=== PATIENT | male | born 1985 | race Caucasian/White ===

== ENCOUNTER → 2017-12-31 11:29 | Outpatient (REF) | payer BC, SELFPAY ==
[2017-12-31 15:39] LABS: Basophils # 0.1 K/mm3 (0-0.2); Basophils % 0.9 % (0.1-2.0); Eosinophils # 0.2 K/mm3 (0.0-0.4); Eosinophils % 2.1 % (0.1-12.0); Hematocrit 48.2 % (42.0-52.0); Hemoglobin 16.7 g/dL (14.1-18.0); Lymphocytes # 2.4 K/mm3 (0.7-4.5); Lymphocytes % 31.6 K/mm3 (10-50); Mean Corpuscular HGB Conc 34.8 g/dL (31.8-35.4); Mean Corpuscular Hemoglobin 28.9 pg (27.0-31.2); Mean Corpuscular Volume 83.3 fl (80-94); Mean Platelet Volume 9.1 fl (7.4-10.4); Monocytes # 0.5 K/mm3 (0.1-1.0); Monocytes % 6.4 % (1.7-9.3); Neutrophils # 4.5 K/mm3 (1.8-7.8); Platelet Count 213 K/mm3 (142-424); Red Blood Count 5.78 M/mm3 (4.60-6.20); Red Cell Distribution Width 12.5 % (11.5-17.5); White Blood Count 7.5 K/mm3 (4.8-10.8)
[2017-12-31 16:09] LABS: Alanine Aminotransferase 35 U/L (12-78); Albumin Level 4.4 gm/dL (3.4-5.0); Albumin/Globulin Ratio 1.4 (1.1-1.8); Alkaline Phosphatase 65 U/L (46-116); Anion Gap 17.3 mEq/L (5-15); Aspartate Amino Transferase 21 U/L (15-37); Bilirubin,Total 1.3 mg/dL (0.2-1.0); Blood Urea Nitrogen 17 mg/dL (7-18); Calcium 8.9 mg/dL (8.5-10.1); Carbon Dioxide 27 mmol/L (21.0-32.0); Chloride 99 mmol/L (98-107); Chol/HDL Ratio 4.4 (1-3.5); Cholesterol 209 mg/dL (140-200); Creatinine,Serum 0.95 mg/dL (0.70-1.30); Estimated Glomerular Filt Rate 92 ml/min (>60); Free T4 (Free Thyroxine) 0.99 ng/dl (0.76-1.46); GFR (African American) 112 ML/MIN (>60); Globulin 3.2 gm/dl (1.3-3.2); Glucose 284 mg/dL (74-106); HDL Cholesterol 48 mg/dL (27-67); LDL Cholesterol 93 mg/dL (0-130); Potassium 4.3 mmoL/L (3.5-5.1); Sodium 139 mmol/L (136-145); Thyroid Stimulating Hormone 5.66 uIU/ml (0.358-3.740); Total Protein,Serum 7.6 gm/dL (6.4-8.2); Triglycerides 339 mg/dL (30-200); VLDL Cholesterol 68 mg/dL (0-40)
[2017-12-31 16:22] LABS: Erythrocyte Sedimentation Rate 4 mm/hr (0-15)
[2017-12-31 17:05] LABS: Hemoglobin A1C 9.5 % (0.0-7.0)
== END ==
LOC: LAB 11:29
PROVIDERS: Visit Provider Nurse Practitioner Family
DX: R53.83 Other fatigue (principal); K92.1 Melena; R19.5 Other fecal abnormalities
CPT/HCPCS: 80053; 80061; 82652; 83036; 84439; 84443; 85025; 85651; 86141

== ENCOUNTER → 2018-01-01 03:00 | Outpatient (CLI) | payer OTHER, SELFPAY ==
[2018-01-02 16:15] LABS: Occult Blood,Stool Negative (Negative)
== END ==
PROVIDERS: PCP Emergency Medicine; Visit Provider Emergency Medicine
DX: R53.83 Other fatigue (principal); R19.5 Other fecal abnormalities; E55.9 Vitamin D deficiency, unspecified
CPT/HCPCS: 82272; G0328

== ENCOUNTER → 2018-01-02 14:44 | Outpatient (CLI) | payer OTHER, SELFPAY ==
[2018-01-02 16:01] LABS: Occult Blood,Stool Negative (Negative)
[2018-01-02 16:15] LABS: Occult Blood,Stool Negative (Negative)
== END ==
PROVIDERS: PCP Emergency Medicine; Visit Provider Nurse Practitioner Family
DX: R53.83 Other fatigue (principal)
CPT/HCPCS: 82272; G0328

== ENCOUNTER → 2018-01-23 09:40 | Outpatient (CLI) | payer OTHER, SELFPAY | PROVIDERS: PCP Emergency Medicine; Visit Provider Nurse Practitioner Family | DX: E11.9 Type 2 diabetes mellitus without complications (principal); Z71.3 Dietary counseling and surveillance | CPT/HCPCS: 97802; G0108 ==

== ENCOUNTER → 2018-04-08 10:01 | Outpatient (REF) | payer OTHER, SELFPAY ==
[2018-04-08 13:47] LABS: Thyroid Stimulating Hormone 3.86 uIU/ml (0.358-3.740)
== END ==
LOC: LAB 10:01
PROVIDERS: Visit Provider Nurse Practitioner Family
DX: R53.83 Other fatigue (principal); E11.9 Type 2 diabetes mellitus without complications
CPT/HCPCS: 83036; 84443

== ENCOUNTER → 2018-05-21 13:51 | Outpatient (CLI) | payer OTHER, SELFPAY ==
[2018-05-21 16:39] LABS: Semen Viscosity Normal (Normal); Sperm Count 107 mil/mm3 (20-160); Sperm Motility 75 % (50-90); Volume,Semen 3.5 ml (2.0-5.0)
[2018-05-21 16:56] LABS: Sperm Morphology Normal (Normal)
[2018-05-21 17:09] LABS: 3Hr Motility Quality Good Progression (Mod-Rapid); 3Hr Sperm Motility 75 % (50-60); Motility Quality Rapid Progression (Mod-Rapid)
== END ==
PROVIDERS: Visit Provider Obstetrics & Gynecology
DX: Z31.41 Encounter for fertility testing (principal)
CPT/HCPCS: 89320

== ENCOUNTER → 2018-07-07 09:52 | Outpatient (CLI) | payer OTHER, SELFPAY ==
[2018-07-07 13:44] LABS: Basophils % 0.5 % (0.1-2.0); Eosinophils # 0.1 K/mm3 (0.0-0.4); Eosinophils % 2.2 % (0.1-12.0); Hematocrit 46.3 % (42.0-52.0); Hemoglobin 15.4 g/dL (14.1-18.0); Lymphocytes # 2.4 K/mm3 (0.7-4.5); Lymphocytes % 37.7 K/mm3 (10-50); Mean Corpuscular HGB Conc 33.2 g/dL (31.8-35.4); Mean Corpuscular Hemoglobin 29.7 pg (27.0-31.2); Mean Corpuscular Volume 89.4 fl (80-94); Mean Platelet Volume 8.6 fl (7.4-10.4); Monocytes # 0.3 K/mm3 (0.1-1.0); Monocytes % 5.5 % (1.7-9.3); Neutrophils # 3.4 K/mm3 (1.8-7.8); Neutrophils % 54.1 % (37.0-80.0); Platelet Count 224 K/mm3 (142-424); Red Blood Count 5.18 M/mm3 (4.60-6.20); Red Cell Distribution Width 13.3 % (11.5-17.5); White Blood Count 6.3 K/mm3 (4.8-10.8)
[2018-07-07 13:56] LABS: Hemoglobin A1C 5.9 % (0.0-7.0)
[2018-07-07 13:57] LABS: Alanine Aminotransferase 25 U/L (12-78); Albumin Level 4.3 gm/dL (3.4-5.0); Albumin/Globulin Ratio 1.4 (1.1-1.8); Alkaline Phosphatase 51 U/L (46-116); Anion Gap 13.6 mEq/L (5-15); Aspartate Amino Transferase 12 U/L (15-37); Bilirubin,Total 1.4 mg/dL (0.2-1.0); Blood Urea Nitrogen 17 mg/dL (7-18); Calcium 9.1 mg/dL (8.5-10.1); Carbon Dioxide 29 mmol/L (21.0-32.0); Chloride 101 mmol/L (98-107); Chol/HDL Ratio 2.5 (1-3.5); Cholesterol 147 mg/dL (140-200); Creatinine,Serum 1.06 mg/dL (0.70-1.30); Estimated Glomerular Filt Rate 81 ml/min (>60); GFR (African American) 99 ML/MIN (>60); Glucose 121 mg/dL (74-106); HDL Cholesterol 59 mg/dL (27-67); LDL Cholesterol 65 mg/dL (0-130); Potassium 4.6 mmoL/L (3.5-5.1); Sodium 139 mmol/L (136-145); Total Protein,Serum 7.3 gm/dL (6.4-8.2); Triglycerides 114 mg/dL (30-200); VLDL Cholesterol 23 mg/dL (0-40)
[2018-07-08 11:37] LABS: Creatinine, Urine 110.7 mg/dL (Not Estab.); Microalbumin, Urine 5.9 ug/mL (Not Estab.)
[2018-07-08 16:06] LABS: Vitamin D 25 Hydroxy 47.1 ng/mL (30.0-100.0)
== END ==
PROVIDERS: Visit Provider Nurse Practitioner Family
DX: E11.9 Type 2 diabetes mellitus without complications (principal); R53.83 Other fatigue
CPT/HCPCS: 80053; 80061; 82043; 82570; 82652; 83036; 84443; 85025

== ENCOUNTER → 2018-10-06 13:09 | Outpatient (CLI) | payer OTHER, SELFPAY ==
[2018-10-06 13:33] LABS: Hemoglobin A1C 5.5 % (0.0-7.0)
[2018-10-06 13:38] LABS: Basophils % 0.6 % (0.1-2.0); Eosinophils # 0.2 K/mm3 (0.0-0.4); Hematocrit 48.1 % (42.0-52.0); Hemoglobin 16.1 g/dL (14.1-18.0); Lymphocytes # 2.3 K/mm3 (0.7-4.5); Lymphocytes % 38.2 % (10-50); Mean Corpuscular HGB Conc 33.5 g/dL (31.8-35.4); Mean Corpuscular Hemoglobin 30.7 pg (27.0-31.2); Mean Corpuscular Volume 91.7 fl (80-94); Mean Platelet Volume 8.3 fl (7.4-10.4); Monocytes # 0.3 K/mm3 (0.1-1.0); Neutrophils # 3.1 K/mm3 (1.8-7.8); Neutrophils % 52.3 % (37.0-80.0); Platelet Count 224 K/mm3 (142-424); Red Blood Count 5.25 M/mm3 (4.60-6.20); Red Cell Distribution Width 13.7 % (11.5-17.5)
[2018-10-06 13:53] LABS: Alanine Aminotransferase 28 U/L (12-78); Albumin Level 4.5 gm/dL (3.4-5.0); Albumin/Globulin Ratio 1.4 (1.1-1.8); Alkaline Phosphatase 51 U/L (46-116); Anion Gap 18.4 mEq/L (5-15); Aspartate Amino Transferase 19 U/L (15-37); Bilirubin,Total 1.1 mg/dL (0.2-1.0); Blood Urea Nitrogen 16 mg/dL (7-18); Calcium 9.5 mg/dL (8.5-10.1); Carbon Dioxide 26 mmol/L (21.0-32.0); Chloride 99 mmol/L (98-107); Chol/HDL Ratio 3.1 (1-3.5); Cholesterol 242 mg/dL (140-200); Creatinine,Serum 0.98 mg/dL (0.70-1.30); Estimated Glomerular Filt Rate 89 ml/min (>60); GFR (African American) 108 ML/MIN (>60); Globulin 3.3 gm/dl (1.3-3.2); Glucose 112 mg/dL (74-106); HDL Cholesterol 78 mg/dL (27-67); LDL Cholesterol 146 mg/dL (0-130); Potassium 4.4 mmoL/L (3.5-5.1); Sodium 139 mmol/L (136-145); T4 (Thyroxine) 7.5 ug/dl (4.7-13.3); Thyroid Stimulating Hormone 4.04 uIU/ml (0.358-3.740); Total Protein,Serum 7.8 gm/dL (6.4-8.2); Triglycerides 90 mg/dL (30-200); VLDL Cholesterol 18 mg/dL (0-40)
[2018-10-13 11:12] LABS: Testosterone, Total, LC/MS 454.2 ng/dL (264.0-916.0); Testosterone,Free 11.9 pg/mL (8.7-25.1)
== END ==
PROVIDERS: PCP Nurse Practitioner Family; Visit Provider Nurse Practitioner Family
DX: E11.9 Type 2 diabetes mellitus without complications (principal); R53.83 Other fatigue
CPT/HCPCS: 80053; 80061; 82652; 83036; 84402; 84403; 84436; 84443; 85025

== ENCOUNTER → 2019-04-09 14:17 | Outpatient (CLI) | payer OTHER, SELFPAY ==
[2019-04-09 14:35] LABS: Basophils % 0.5 % (0.1-2.0); Eosinophils # 0.1 K/mm3 (0.0-0.4); Eosinophils % 1.7 % (0.1-12.0); Hematocrit 40.6 % (42.0-52.0); Hemoglobin 14.6 g/dL (14.1-18.0); Lymphocytes # 1.5 K/mm3 (0.7-4.5); Lymphocytes % 36.9 % (10-50); Mean Corpuscular Hemoglobin 30.9 pg (27.0-31.2); Mean Corpuscular Volume 85.7 fl (80-94); Mean Platelet Volume 8.6 fl (7.4-10.4); Monocytes # 0.4 K/mm3 (0.1-1.0); Monocytes % 9.9 % (1.7-9.3); Platelet Count 221 K/mm3 (142-424); Red Blood Count 4.73 M/mm3 (4.60-6.20); Red Cell Distribution Width 11.4 % (11.5-17.5)
[2019-04-09 16:35] LABS: Alanine Aminotransferase 27 U/L (12-78); Albumin Level 3.7 gm/dL (3.4-5.0); Albumin/Globulin Ratio 1.3 (1.1-1.8); Alkaline Phosphatase 52 U/L (46-116); Anion Gap 15.4 mEq/L (5-15); Aspartate Amino Transferase 14 U/L (15-37); Blood Urea Nitrogen 20 mg/dL (7-18); Calcium 8.7 mg/dL (8.5-10.1); Carbon Dioxide 25 mmol/L (21.0-32.0); Chloride 105 mmol/L (98-107); Chol/HDL Ratio 2.7 (1-3.5); Cholesterol 109 mg/dL (140-200); Creatinine,Serum 0.75 mg/dL (0.70-1.30); Estimated Glomerular Filt Rate 121 ml/min (>60); GFR (African American) 146 ML/MIN (>60); Globulin 2.9 gm/dl (1.3-3.2); Glucose 138 mg/dL (74-106); HDL Cholesterol 40 mg/dL (27-67); LDL Cholesterol 50 mg/dL (0-130); Potassium 4.4 mmoL/L (3.5-5.1); Sodium 141 mmol/L (136-145); T4 (Thyroxine) 11.6 ug/dl (4.7-13.3); Thyroid Stimulating Hormone 0.02 uIU/ml (0.358-3.740); Total Protein,Serum 6.6 gm/dL (6.4-8.2); Triglycerides 96 mg/dL (30-200); VLDL Cholesterol 19 mg/dL (0-40)
[2019-04-09 18:06] LABS: Hemoglobin A1C 5.4 % (0.0-7.0)
[2019-04-11 18:07] LABS: Vitamin D 25 Hydroxy 41.6 ng/mL (30.0-100.0)
[2019-04-14 08:50] LABS: Testosterone, Total, LC/MS 1044.6 ng/dL (264.0-916.0); Testosterone,Free 9.9 pg/mL (8.7-25.1)
== END ==
PROVIDERS: Visit Provider Nurse Practitioner Family
DX: E11.9 Type 2 diabetes mellitus without complications (principal); R00.2 Palpitations; R53.83 Other fatigue
CPT/HCPCS: 80053; 80061; 82652; 83036; 84402; 84403; 84436; 84443; 85025

== ENCOUNTER → 2019-10-20 13:33 | Outpatient (CLI) | payer OTHER, SELFPAY ==
[2019-10-20 14:10] LABS: Basophils % 0.4 % (0.1-2.0); Eosinophils # 0.2 K/mm3 (0.0-0.4); Eosinophils % 4.6 % (0.1-12.0); Hematocrit 47.9 % (42.0-52.0); Hemoglobin 16.2 g/dL (14.1-18.0); Lymphocytes # 1.4 K/mm3 (0.7-4.5); Lymphocytes % 32.1 % (10-50); Mean Corpuscular HGB Conc 33.9 g/dL (31.8-35.4); Mean Corpuscular Hemoglobin 28.8 pg (27.0-31.2); Mean Corpuscular Volume 84.9 fl (80-94); Mean Platelet Volume 8.8 fl (7.4-10.4); Monocytes # 0.4 K/mm3 (0.1-1.0); Neutrophils # 2.4 K/mm3 (1.8-7.8); Neutrophils % 53.8 % (37.0-80.0); Platelet Count 254 K/mm3 (142-424); Red Blood Count 5.64 M/mm3 (4.60-6.20); Red Cell Distribution Width 12.6 % (11.5-17.5); White Blood Count 4.4 K/mm3 (4.8-10.8)
[2019-10-20 15:30] LABS: Alanine Aminotransferase 24 U/L (12-78); Albumin Level 3.9 gm/dL (3.4-5.0); Albumin/Globulin Ratio 1.3 (1.1-1.8); Alkaline Phosphatase 115 U/L (46-116); Bilirubin,Total 3.3 mg/dL (0.2-1.0); Blood Urea Nitrogen 17 mg/dL (7-18); Calcium 9.2 mg/dL (8.5-10.1); Carbon Dioxide 25 mmol/L (21.0-32.0); Chloride 99 mmol/L (98-107); Chol/HDL Ratio 2.2 (1-3.5); Cholesterol 129 mg/dL (140-200); Estimated Glomerular Filt Rate 156 ml/min (>60); GFR (African American) 189 ML/MIN (>60); Globulin 2.9 gm/dl (1.3-3.2); Glucose 194 mg/dL (74-106); HDL Cholesterol 58 mg/dL (27-67); LDL Cholesterol 51 mg/dL (0-130); T4 (Thyroxine) 1.3 ug/dl (4.7-13.3); Total Protein,Serum 6.8 gm/dL (6.4-8.2); Triglycerides 98 mg/dL (30-200); VLDL Cholesterol 20 mg/dL (0-40)
[2019-10-20 16:30] LABS: Anion Gap 15.1 mEq/L (5-15); Aspartate Amino Transferase 26 U/L (15-37); Potassium 4.1 mmoL/L (3.5-5.1); Sodium 135 mmol/L (136-145)
[2019-10-20 19:51] LABS: Hemoglobin A1C 7.6 % (0.0-7.0)
[2019-10-21 11:47] LABS: Vitamin D 25 Hydroxy 39.5 ng/mL (30.0-100.0)
== END ==
PROVIDERS: Visit Provider Physician Assistant
DX: R53.83 Other fatigue (principal); E11.9 Type 2 diabetes mellitus without complications; Z79.84 Long term (current) use of oral hypoglycemic drugs
CPT/HCPCS: 80053; 80061; 82652; 83036; 84436; 84443; 85025

== ENCOUNTER → 2020-07-18 17:26 | Outpatient (CLI) | payer OTHER, SELFPAY ==
[2020-07-18 17:47] LABS: Basophils # 0.1 K/mm3 (0-0.2); Eosinophils # 0.2 K/mm3 (0.0-0.4); Eosinophils % 3.6 % (0.1-12.0); Hemoglobin 17.9 g/dL (14.1-18.0); Lymphocytes # 2.2 K/mm3 (0.7-4.5); Lymphocytes % 34.2 % (10-50); Mean Corpuscular HGB Conc 35.8 g/dL (31.8-35.4); Mean Corpuscular Hemoglobin 30.9 pg (27.0-31.2); Mean Corpuscular Volume 86.2 fl (80-94); Mean Platelet Volume 8.2 fl (7.4-10.4); Monocytes # 0.4 K/mm3 (0.1-1.0); Neutrophils # 3.5 K/mm3 (1.8-7.8); Neutrophils % 55.3 % (37.0-80.0); Platelet Count 215 K/mm3 (142-424); Red Cell Distribution Width 12.5 % (11.5-17.5); White Blood Count 6.4 K/mm3 (4.8-10.8)
[2020-07-18 18:05] LABS: Creatinine,Urine Random 285 mg/dL (Not Estab.)
[2020-07-18 18:06] LABS: Microalbumin/Creatinine Ratio 36.8
[2020-07-18 19:01] LABS: Alanine Aminotransferase 22 U/L (12-78); Albumin Level 5.2 g/dl (3.5-5.0); Albumin/Globulin Ratio 1.7 (1.1-1.8); Alkaline Phosphatase 103 U/L (38-126); Anion Gap 17.6 mEq/L (5-15); Aspartate Amino Transferase 23 U/L (17-59); Bilirubin,Total 1.4 mg/dl (0.2-1.3); Blood Urea Nitrogen 15 mg/dl (9-20); Calcium 9.9 mg/dl (8.4-10.2); Carbon Dioxide 26 mmol/L (22.0-30.0); Chloride 99 mmol/L (98-107); Estimated Glomerular Filt Rate 155 ml/min (>60); GFR (African American) 188 ML/MIN (>60); Glucose 266 mg/dl (74-100); Potassium 4.6 mmoL/L (3.5-5.1); Sodium 138 mmol/L (136-145); Total Protein,Serum 8.2 g/dl (6.3-8.2)
[2020-07-18 19:20] LABS: T4 (Thyroxine) 9.9 ug/dl (5.53-11.0)
[2020-07-18 19:33] LABS: Thyroid Stimulating Hormone < 0.02 uIU/mL (0.465-4.68)
[2020-07-18 19:41] LABS: Hemoglobin A1C 8.9 % (4.0-6.0)
== END ==
PROVIDERS: Visit Provider Family Medicine
DX: E11.9 Type 2 diabetes mellitus without complications (principal); Z79.4 Long term (current) use of insulin
CPT/HCPCS: 80053; 82043; 82570; 83036; 84436; 84443; 85025

== ENCOUNTER → 2020-09-22 17:36 | Outpatient (CLI) | payer OTHER, SELFPAY ==
[2020-09-22 18:04] LABS: Hemoglobin A1C 8.1 % (4.0-6.0)
[2020-09-22 18:14] LABS: Triiodothryronine (T3) Uptake 38 % (23.5-40.5)
[2020-09-22 18:15] LABS: Free Thyroxine Index 2.9 ug/dL (5.93-13.13); T4 (Thyroxine) 7.7 ug/dl (5.53-11.0)
[2020-09-22 18:29] LABS: Thyroid Stimulating Hormone < 0.02 uIU/mL (0.465-4.68)
[2020-09-24 17:48] LABS: Thyroid Peroxidase Antibodies 199 IU/mL (0-34)
[2020-09-26 07:30] LABS: Thyroid Stimulating Immunoglob 4.32 IU/L (0.00-0.55)
== END ==
PROVIDERS: Visit Provider Family Medicine
DX: E03.9 Hypothyroidism, unspecified (principal); E11.9 Type 2 diabetes mellitus without complications; R53.83 Other fatigue; Z79.84 Long term (current) use of oral hypoglycemic drugs
CPT/HCPCS: 83036; 84436; 84443; 84445; 84479; 86376

== ENCOUNTER → 2020-10-03 13:15 | Outpatient (CLI) | payer BC, SELFPAY ==
--- NOTE | 2020-10-03 13:16 | US_ITS ---
PROCEDURE: US THYROID CLINICAL INDICATION: enlarged thyroid COMPARISON: No exams were available for comparison FINDINGS: Right lobe: 1.8cm x 4.3cm x 1.5cm Left lobe: 1.5cm x 4.3cm x 1.8cm Isthmus: Mildly thickened at 4 mm. Additional findings: There is a vague 8 mm isoechoic nodule in the upper pole on the right. There is heterogeneous echogenicity bilaterally. IMPRESSION: Mildly enlarged thyroid gland with heterogeneous echogenicity with a vague nodule on the right. Consider six-month follow-up. Dictated by: Salazar Garcia MD 10/04/2020 14:59 Salazar Garcia MD in [place] 10/04/2020 14:59
== END ==
PROVIDERS: PCP Family Medicine; Visit Provider Family Medicine
DX: E01.0 Iodine-deficiency related diffuse (endemic) goiter (principal); E03.9 Hypothyroidism, unspecified
CPT/HCPCS: 76536

== ENCOUNTER 2020-10-23 02:02 | Emergency (ER) | payer BC, SELFPAY ==
[2020-10-23 02:09] VITALS: BP 139/70; PULSE 96; RESP 18; TEMP 36.9; O2SAT 96; BMI 24.7
--- NOTE | 2020-10-23 02:20 | XR_ITS ---
PROCEDURE: XR HAND RT MIN 3V Referring Doctor: Chao Jolly Patient Age:34Y CLINICAL INDICATION: Hand injury PAIN ULNAR ASPECT HAND. SWELLING BRUISING. FELL DOWN STAIRS HIT FLOOR COMPARISON: No exams were available for comparison FINDINGS: right hand 3 view ap lateral and oblique performed today mildly comminuted fracture at neck of 5th metacarpal. no significant displacement but there is slight angulation with anterior tilt of distal fracture fragment/head of 5th metacarpal. there is also fracture transversing the neck of the 4th metacarpal but nondisplaced with also slight angulation with anterior tilt of head of 4th metacarpal seen on lateral view. soft tissue swelling at the hand-most evident dorsally and along the ulnar aspect of the hand overlying the region of fractures The fingers appear intact. 1st 2nd and 3rd metacarpals intact. carpals intact. borderline narrowing and possible scant early degenerative changes at ip joint of thumb a may reflect scant degenerative changes here. IMPRESSION: ACUTE FRACTURE NECK 5TH AND 4TH METACARPALS Dictated by: Eric Cheema MD 10/23/2020 11:40 Eric Cheema MD in [place] 10/23/2020 11:40
--- NOTE | 2020-10-23 02:46 | HMH.EDGENADL ---
ED Disposition Clinical Impression: Boxers fracture Qualifiers: Encounter type: initial encounter Fracture type: closed Qualified Code(s): S62.339A - Displaced fracture of neck of unspecified metacarpal bone, initial encounter for closed fracture Disposition: Home, Self-Care Condition on Discharge: Good Instructions: DI for a Hand Fracture Additional Instructions: You were seen on an emergency basis. It is very important that you follow up with your primary care provider and/or specialist as we discussed within 2 days. All labs and imaging were obtained and interpreted here to rule out life threatening emergencies, but your final results should be reviewed by your primary doctor at your follow up appointment. Please return to the emergency department if any of your symptoms worsen, or if they do not improve as we discussed. Prescriptions: Naproxen Sodium [Anaprox Ds] 550 mg PO BID #20 tab Transmission Status: Pending to [facility] Referrals: Garrett Lazo MD [Primary Care Provider] - Kailyn Espino MD [Physician] - - Critical Care Critical Care Time: No Attestation: On 10/23/20, the high probability of a clinically significant, sudden or life threatening deterioration of the following system(s) required my full and direct attention, intervention and personal management. The time I documented below is in addition to time spent performing reported procedures but includes the following listed in this critical care notation. Medical Decision Making - Medical Records Medical records reviewed: Yes: I reviewed the patient's medical records. - Sy Inquiry Pt receiving controlled substance: No Vital Signs: 10/23/20 02:09 Temperature 98.4 F Temperature Source Oral Pulse Rate [Left] 96 H Respiratory Rate 18 Blood Pressure [Left Arm] 139/70 Blood Pressure Mean [Left Arm] 93 Blood Pressure Source [Left Arm] Automatic Cuff Blood Pressure Position [Left Arm] Sitting 02 Sat by Pulse Oximetry 96 Oxygen Delivery Method Room Air - Lab Data Lab results reviewed: Yes: I reviewed the patient's lab results. Orders (Tests/Meds): ORDERS Category Date Time Status XR hand RT min 3V Stat Exams 10/23/20 02:20 Taken Medical Decision Narrative: 34-year-old male presenting with hand pain after mechanical fall. Clinically sober here. X-ray of the right hand was obtained and demonstrated a boxer's fracture. He was placed in a ulnar gutter splint for this. He received [place] here. Tendon function intact. Neurovascularly intact. Closed injury. Will follow up with Ortho. No other injuries. General Adult HPI - General Chief complaint: Extremity Injury, Upper Stated complaint: thinks he broke his right hand Time Seen by Provider: 10/23/20 02:46 Mode of Arrival: Ambulatory Limitations: No Limitations Description of Symptoms (Recalled from ER Triage Doc. by RN): Pt fell hitting right hand on floor and is swelling and paoinfull - History of Present Illness HPI narrative: This is a 34-year-old [id number] male presenting just after a ground-level mechanical fall onto his right hand. He presents with pain localized to the ulnar aspect of his right hand. Patient states that he was drinking when he fell. No head strike, loss of consciousness or other injury. He took ibuprofen at home which helped minimally. - Related Data Home Medications Medication Instructions Recorded Confirmed Empagliflozin [Jardiance] 25 mg PO DAILY 10/23/20 10/23/20 Glimepiride 2 mg PO DAILY 10/23/20 10/23/20 Metformin HCl [Glucophage] 1,000 mg PO BID 10/23/20 10/23/20 lisinopriL [Lisinopril 2.5mg Tab] 2.5 mg PO DAILY 10/23/20 10/23/20 Previous Rx's Medication Instructions Recorded sildenafil 100 mg tablet 100 mg PO DAILY PRN #10 tab 07/18/20 Naproxen Sodium [Anaprox Ds] 550 mg PO BID #20 tab 10/23/20 Allergies Allergy/AdvReac Type Severity Reaction Status Date / Time No Known Allergies Allergy
--- NOTE | 2020-10-23 02:56 | PC.NURSE ---
Ulnar gutter placed on right hand pt tolerated well, educated on monitoring cap refil
[2020-10-23 03:07] VITALS: BP 136/74; PULSE 92; RESP 16; TEMP 36.9; O2SAT 98
== END 2020-10-23 03:11 | disposition home or self-care (01) ==
PROVIDERS: Emergency Provider Physician Assistant; PCP Family Medicine
DX: S62.366A Nondisplaced fracture of neck of fifth metacarpal bone, right hand, initial encounter for closed fracture (principal); S62.364A Nondisplaced fracture of neck of fourth metacarpal bone, right hand, initial encounter for closed fracture; W01.0XXA Fall on same level from slipping, tripping and stumbling without subsequent striking against object, initial encounter; Y92.019 Unspecified place in single-family (private) house as the place of occurrence of the external cause; I10 Essential (primary) hypertension; E03.9 Hypothyroidism, unspecified; E11.9 Type 2 diabetes mellitus without complications; F17.210 Nicotine dependence, cigarettes, uncomplicated; Z79.899 Other long term (current) drug therapy
CPT/HCPCS: 29125; 73130; 99284

== ENCOUNTER → 2020-10-31 12:35 | Outpatient (CLI) | payer BC, SELFPAY ==
--- NOTE | 2020-10-31 12:39 | XR_ITS ---
PROCEDURE: XR HAND RT MIN 3V CLINICAL INDICATION: R ring, small finger metacarpal neck fractures COMPARISON: CR XR HAND RT MIN 3V from 10/23/2020 FINDINGS: There is a medial splint in place. Fractures once again noted involving the distal aspect of the 4th and 5th metacarpals with minimal palmar and radial angulation of the distal fracture fragments without significant displacement with no significant change. IMPRESSION: Status post splinting of 4th and 5th metacarpal fractures Dictated by: Salazar Garcia MD 10/31/2020 14:31 Salazar Garcia MD in [place] 10/31/2020 14:31
== END ==
PROVIDERS: PCP Family Medicine; Visit Provider Orthopaedic Surgery
DX: S62.339A Displaced fracture of neck of unspecified metacarpal bone, initial encounter for closed fracture (principal)
CPT/HCPCS: 73130

== ENCOUNTER → 2020-11-24 09:12 | Outpatient (CLI) | payer BC, SELFPAY ==
--- NOTE | 2020-11-24 09:15 | XR_ITS ---
PROCEDURE: XR HAND RT MIN 3V Referring Doctor: Kailyn Espino Patient Age:35Y CLINICAL INDICATION: RT hand: 4th 5th MC neck fxs. Follow-up COMPARISON: CR XR HAND RT MIN 3V from 10/23/2020 DX XR HAND RT MIN 3V from 10/31/2020 TECHNIQUE: 3 View AP, Oblique, Lateral FINDINGS: Right hand AP lateral and oblique views performed and compared to October 31. Splint is been removed for today's study. Fractures at the neck of the 5th and 4th metacarpal. If anything there angulationfracture is slightly more evident on today's studies than previous. The fracture zone is slightly more evident of particularly dorsally this may in part reflect resorption but is difficult to exclude some slight additional distraction. In either case there is early healing and bone formation at the anterior aspect of the fracture zone.. The anterior tilt of the head of the 4th or 5th metacarpal are most evident. . Swelling persists overlying these fractures and the ulnar aspect of the hand The 1st 2nd and 3rd metacarpals are intact IMPRESSION: Fractures neck of 4th and 5th metacarpal; with early healing evident However if anything the anterior tilt and angulation of at head of 4th and 5th metacarpal appears slightly more evident on today's radiograph but correlation required Dictated by: Eric Cheema MD 11/24/2020 10:18 Eric Cheema MD in [place] 11/24/2020 10:18
== END ==
PROVIDERS: PCP Family Medicine; Visit Provider Orthopaedic Surgery
DX: S62.339A Displaced fracture of neck of unspecified metacarpal bone, initial encounter for closed fracture (principal)
CPT/HCPCS: 73130

== ENCOUNTER → 2020-12-16 08:42 | Outpatient (CLI) | payer BC, SELFPAY ==
--- NOTE | 2020-12-16 08:56 | XR_ITS ---
PROCEDURE: XR HAND RT MIN 3V CLINICAL INDICATION: RT 4th 5th MC neck FX's Follow-up fracture COMPARISON: CR XR HAND RT MIN 3V from 10/23/2020 DX XR HAND RT MIN 3V from 10/31/2020 CR XR HAND RT MIN 3V from 11/24/2020 FINDINGS: Comminuted minimally displaced fractures involve the distal aspect of the 4th and 5th metacarpals. Callus formation is present indicating early healing. There is moderate lateral and anterior angulation of the distal fracture fragments. The joint spaces are well-preserved. No significant degenerative/arthritic changes. No erosive changes evident. Other findings:None. IMPRESSION: Healing 4th and 5th metacarpal fractures Dictated by: Salazar Garcia MD 12/16/2020 11:43 Salazar Garcia MD in [place] 12/16/2020 11:43
== END ==
PROVIDERS: PCP Family Medicine; Visit Provider Orthopaedic Surgery
DX: S62.339A Displaced fracture of neck of unspecified metacarpal bone, initial encounter for closed fracture (principal)
CPT/HCPCS: 73130

== ENCOUNTER → 2021-01-13 10:00 | Outpatient (CLI) | payer BC, SELFPAY ==
--- NOTE | 2021-01-13 10:03 | XR_ITS ---
PROCEDURE: XR HAND RT MIN 3V CLINICAL INDICATION: R 4th and 5th metacarpal neck fractures COMPARISON: CR XR HAND RT MIN 3V from 10/23/2020 DX XR HAND RT MIN 3V from 10/31/2020 CR XR HAND RT MIN 3V from 11/24/2020 CR XR HAND RT MIN 3V from 12/16/2020 FINDINGS: Demonstrated comminuted fractures of the distal 4th and 5th metacarpals demonstrate interval progression of healing. Joint spaces remain normal. IMPRESSION: Healing 4th and 5th metacarpal fractures. Dictated by: Niki Lechuga MD 01/13/2021 10:30 Niki Lechuga MD in [place] 01/13/2021 10:30
== END ==
PROVIDERS: PCP Family Medicine; Visit Provider Orthopaedic Surgery
DX: S62.339A Displaced fracture of neck of unspecified metacarpal bone, initial encounter for closed fracture (principal)
CPT/HCPCS: 73130

== ENCOUNTER → 2021-03-27 17:20 | Outpatient (CLI) | payer BC, SELFPAY ==
[2021-03-27 18:28] LABS: Free Thyroxine Index 3.9 ug/dL (5.93-13.13); T4 (Thyroxine) 9.5 ug/dl (5.53-11.0); Triiodothryronine (T3) Uptake 41 % (23.5-40.5)
[2021-03-27 18:42] LABS: Thyroid Stimulating Hormone < 0.02 uIU/mL (0.465-4.68)
[2021-03-28 09:09] LABS: Alanine Aminotransferase 15 U/L (12-78); Albumin Level 4.7 g/dl (3.5-5.0); Albumin/Globulin Ratio 1.8 (1.1-1.8); Alkaline Phosphatase 61 U/L (38-126); Anion Gap 13.5 mEq/L (5-15); Aspartate Amino Transferase 21 U/L (17-59); Bilirubin,Total 1.3 mg/dl (0.2-1.3); Blood Urea Nitrogen 11 mg/dl (9-20); Calcium 9.4 mg/dl (8.4-10.2); Carbon Dioxide 23 mmol/L (22.0-30.0); Chloride 103 mmol/L (98-107); Estimated Glomerular Filt Rate 154 ml/min (>60); GFR (African American) 187 ML/MIN (>60); Globulin 2.6 g/dL (1.3-3.2); Glucose 250 mg/dl (74-100); Potassium 4.5 mmoL/L (3.5-5.1); Sodium 135 mmol/L (136-145); Total Protein,Serum 7.3 g/dl (6.3-8.2)
[2021-03-28 09:21] LABS: Hemoglobin A1C 7.7 % (4.0-6.0)
[2021-03-30 12:48] LABS: Thyroid Peroxidase Antibodies 163 IU/mL (0-34)
== END ==
PROVIDERS: Visit Provider Family Medicine
DX: E11.9 Type 2 diabetes mellitus without complications (principal); I10 Essential (primary) hypertension; Z79.84 Long term (current) use of oral hypoglycemic drugs; Z79.899 Other long term (current) drug therapy
CPT/HCPCS: 80053; 83036; 84436; 84443; 84479; 86376

== ENCOUNTER → 2021-04-27 15:31 | Outpatient (CLI) | payer BC, SELFPAY ==
[2021-04-27 17:28] LABS: T4 (Thyroxine) 5.8 ug/dl (5.53-11.0)
[2021-04-27 17:41] LABS: Thyroid Stimulating Hormone 0.23 uIU/mL (0.465-4.68)
== END ==
PROVIDERS: Visit Provider Family Medicine
DX: E03.9 Hypothyroidism, unspecified (principal)
CPT/HCPCS: 84436; 84443

== ENCOUNTER → 2021-08-21 18:02 | Outpatient (CLI) | payer BC, SELFPAY ==
[2021-08-21 20:24] LABS: Free T4 (Free Thyroxine) 0.08 ng/dl (0.78-2.19)
[2021-08-21 20:47] LABS: Hemoglobin A1C 10.6 % (4.0-6.0)
== END ==
PROVIDERS: Visit Provider Family Medicine
DX: E11.9 Type 2 diabetes mellitus without complications (principal); E03.9 Hypothyroidism, unspecified; Z79.84 Long term (current) use of oral hypoglycemic drugs
CPT/HCPCS: 83036; 84439; 84443

== ENCOUNTER → 2021-11-20 13:54 | Outpatient (CLI) | payer BC, SELFPAY ==
[2021-11-20 14:03] LABS: Chloride 100 mmol/L (98-107); Sodium 137 mmol/L (136-145)
[2021-11-20 14:04] LABS: Potassium 4.1 mmoL/L (3.5-5.1)
[2021-11-20 14:06] LABS: Alanine Aminotransferase 18 U/L (12-78); Albumin Level 4.6 g/dl (3.5-5.0); Albumin/Globulin Ratio 1.8 (1.1-1.8); Alkaline Phosphatase 49 U/L (38-126); Anion Gap 15.1 mEq/L (5-15); Aspartate Amino Transferase 27 U/L (17-59); Bilirubin,Total 0.9 mg/dl (0.2-1.3); Blood Urea Nitrogen 12 mg/dl (9-20); Carbon Dioxide 26 mmol/L (22.0-30.0); Estimated Glomerular Filt Rate 128 ml/min (>60); GFR (African American) 155 ML/MIN (>60); Globulin 2.5 g/dL (1.3-3.2); Total Protein,Serum 7.1 g/dl (6.3-8.2)
[2021-11-20 14:07] LABS: Calcium 9.1 mg/dl (8.4-10.2); Glucose 214 mg/dl (74-100)
[2021-11-20 14:17] LABS: Hemoglobin A1C 7.6 % (4.0-6.0)
[2021-11-20 15:16] LABS: Free T4 (Free Thyroxine) 0.82 ng/dl (0.78-2.19)
== END ==
PROVIDERS: Visit Provider Family Medicine
DX: E11.9 Type 2 diabetes mellitus without complications (principal); Z79.84 Long term (current) use of oral hypoglycemic drugs
CPT/HCPCS: 80053; 83036; 84439; 84443

== ENCOUNTER → 2022-03-08 13:42 | Outpatient (CLI) | payer BC, SELFPAY ==
[2022-03-08 16:03] LABS: Free T4 (Free Thyroxine) 1.53 ng/dl (0.78-2.19)
[2022-03-08 16:19] LABS: Thyroid Stimulating Hormone 6.74 uIU/mL (0.465-4.68)
== END ==
PROVIDERS: Visit Provider Clinical Nurse Specialist Adult Health
DX: E89.0 Postprocedural hypothyroidism (principal)
CPT/HCPCS: 36415; 84439; 84443

== ENCOUNTER 2022-06-19 14:44 | Emergency (ER) | payer BC, SELFPAY ==
[2022-06-19 15:31] VITALS: BP 113/76; PULSE 69; RESP 17; TEMP 36.8; O2SAT 97; BMI 24.1
[2022-06-19 15:36] LABS: UTC Strep Screen (Rapid) Negative (Negative)
--- NOTE | 2022-06-19 16:05 | HMH.EDUTC ---
[facility] [place] Clinical Impression: Exposure to COVID-19 virus, Viral syndrome Pharyngitis Qualifiers: Pharyngitis/tonsillitis etiology: unspecified etiology Qualified Code(s): J02.9 - Acute pharyngitis, unspecified Disposition: Home, Self-Care Condition on Discharge: Good Instructions: DI for Sinusitis, DI for COVID-19 (Suspected or Confirmed ), Preventing the Spread of Coronavirus Discharge Instructions Additional Instructions: Drink plenty of fluids. Take tylenol or ibuprofen for pain or fever. Take the medications as directed. Follow up with your regular doctor. GO TO THE ER FOR ANY WORSENING SYMPTOMS Quarantine until you know the results of your covid-19 test. Notify your school or workplace of your results and follow their instructions regarding return to work/school. Prescriptions: Benzonatate [Benzonatate 100mg cap] 100 mg PO TIDP PRN #30 cap PRN Reason: Cough Transmission Status: Received by [facility] Azithromycin [Z-Tejas 250mg Tab*] 250 mg PO UD DOSE PK #6 tab Transmission Status: Received by [facility] Referrals: Garrett Lazo MD [Primary Care Provider] - Time of Disposition: 16:07 Medical Decision Making - Medical Records Medical records reviewed: No: I reviewed the patient's medical records. - Sy Inquiry Pt receiving controlled substance: No Vital Signs: 06/19/22 15:31 06/19/22 16:09 Temperature 98.3 F 98.3 F Temperature Source Oral Pulse Rate 69 Pulse Rate [Left] 69 Respiratory Rate 17 17 Blood Pressure 113/76 Blood Pressure [Right Arm] 113/76 Blood Pressure Mean [Right Arm] 88 02 Sat by Pulse Oximetry 97 - Lab Data Lab Results 06/19/22 15:22: Strep Scn Rapid Clinic Negative Orders (Tests/Meds): ORDERS Category Date Time Status Covid-19 Nasal PCR ([facility]) Routine Lab 06/19/22 15:11 Received Strep Screen Confirmation Stat Micro 06/19/22 15:22 Received [facility] [place] HPI - General Stated complaint: covid test Time Seen by Provider: 06/19/22 15:35 Mode of Arrival: Ambulatory Source of Information: Patient Limitations: No Limitations HEENT Symptoms (Recalled from RN notes): Yes Resp Symptoms (Recalled from RN notes): Yes Skin Symptoms (Recalled from RN notes): No MS Symptoms (Recalled from RN notes): No Functional Status (Recalled from RN notes): n/a - History of Present Illness Provider Complaint: He comes in for covid test. He states that his symptoms include fever, sore throat, body aches, cough and headache. symptoms began 1 week ago - Related Data Previous Rx's Medication Instructions Recorded zolpidem 5 mg tablet 5 mg PO HS PRN #30 tab 03/27/21 levothyroxine 137 mcg capsule 137 mcg PO DAILY #90 cap 11/20/21 metformin 1,000 mg tablet 1,000 mg .ROUTE BID #180 tab 11/20/21 lisinopril 2.5 mg tablet 2.5 mg PO DAILY #30 tab 12/12/21 simvastatin 5 mg tablet 5 mg PO DAILY #30 tab 12/12/21 blood-glucose sensor See Rx Instructions .ROUTE 03/02/22 .COMPLEX #3 each blood-glucose transmitter See Rx Instructions .ROUTE 03/02/22 .MEDSUPPLY #1 each sildenafil 100 mg tablet See Rx Instructions .ROUTE 06/15/22 .COMPLEX #10 tab Azithromycin [Z-Tejas 250mg Tab*] 250 mg PO UD DOSE PK #6 tab 06/19/22 Benzonatate [Benzonatate 100mg 100 mg PO TIDP PRN #30 cap 06/19/22 cap] Allergies Allergy/AdvReac Type Severity Reaction Status Date / Time No Known Allergies Allergy Verified 06/19/22 15:33 - Worker's Comp Is this a Worker's Comp case?: No [facility] History - Hepatitis A Screen Attestation statement:: This patient has been screened for Hepatitis A risk factors. I have reviewed the patient's past medical history: Yes Medical History: Reports:: Diabetes Mellitus Type 2, Hypertension Other Medical History: Reports: Hypothyroidism, Other Comment: GASTROENTERITIS 2008, POSSIBLE UNBILICAL HERNIA 2015 Other Surgeries: Yes: No Previous Surgery Amputation: No Fractures: No - Social History Smoking
[2022-06-19 16:09] VITALS: BP 113/76; PULSE 69; RESP 17; TEMP 36.8
== END 2022-06-19 16:12 | disposition home or self-care (01) ==
PROVIDERS: Emergency Provider Nurse Practitioner Family; PCP Family Medicine
DX: U07.1 COVID-19 (principal); B34.9 Viral infection, unspecified; J02.9 Acute pharyngitis, unspecified; R51.9 Headache, unspecified; I10 Essential (primary) hypertension; E11.9 Type 2 diabetes mellitus without complications; E03.9 Hypothyroidism, unspecified; F17.210 Nicotine dependence, cigarettes, uncomplicated; M79.10 Myalgia, unspecified site; Z79.84 Long term (current) use of oral hypoglycemic drugs; Z79.899 Other long term (current) drug therapy; Z82.49 Family history of ischemic heart disease and other diseases of the circulatory system; Z80.9 Family history of malignant neoplasm, unspecified
CPT/HCPCS: 87880; 99213; C9803; G0463; U0003; U0005

== ENCOUNTER → 2023-02-25 18:12 | Outpatient (CLI) | payer BC, SELFPAY ==
[2023-02-25 19:14] LABS: Hemoglobin A1C 9.2 % (4.0-6.0)
[2023-02-25 19:15] LABS: Chloride 101 mmol/L (98-107); Sodium 134 mmol/L (136-145)
[2023-02-25 19:16] LABS: Potassium 4.6 mmoL/L (3.5-5.1)
[2023-02-25 19:18] LABS: Alanine Aminotransferase 17 U/L (12-78); Alkaline Phosphatase 80 U/L (38-126); Aspartate Amino Transferase 18 U/L (17-59); Bilirubin,Total 1.1 mg/dl (0.2-1.3); Blood Urea Nitrogen 17 mg/dl (9-20); Estimated Glomerular Filt Rate 152 ml/min (>60); GFR (African American) 184 ML/MIN (>60)
[2023-02-25 19:19] LABS: Albumin Level 4.7 g/dl (3.5-5.0); Anion Gap 17.6 mEq/L (5-15); Calcium 8.7 mg/dl (8.4-10.2); Carbon Dioxide 20 mmol/L (22.0-30.0); Globulin 2.4 g/dL (1.3-3.2); Glucose 288 mg/dl (74-100); Total Protein,Serum 7.1 g/dl (6.3-8.2)
[2023-02-25 20:07] LABS: Thyroid Stimulating Hormone 0.22 uIU/mL (0.465-4.68)
== END ==
PROVIDERS: PCP Family Medicine; Visit Provider Family Medicine
DX: E03.9 Hypothyroidism, unspecified (principal); E11.9 Type 2 diabetes mellitus without complications; Z79.84 Long term (current) use of oral hypoglycemic drugs
CPT/HCPCS: 80053; 83036; 84443

== ENCOUNTER 2023-11-11 09:27 | Emergency (ER) | payer BC, SELFPAY ==
[2023-11-11 09:36] VITALS: BMI 21.6
--- NOTE | 2023-11-11 09:38 | XR_ITS ---
FINAL REPORT TECHNIQUE: Chest PA & Lateral CLINICAL HISTORY: cough x 4 days smoker COMPARISON: None FINDINGS: 2 views of the chest were performed. The heart size is normal. The mediastinum is within normal limits. There is no acute cardiopulmonary process. There are no pleural effusions. There is no pneumothorax. The bony thorax appears intact. IMPRESSION: No acute cardiopulmonary process. Reviewed, Interpreted and Dictated by Primo May MD Transcribed by Marga Sierra Authenticated and . [facility]
[2023-11-11 09:39] VITALS: BP 136/81; PULSE 101; RESP 20; TEMP 36.7; O2SAT 100; BMI 21.7
[2023-11-11 09:40] LABS: Coronavirus 19, PCR Not Detected (NotDetected); Influenza B, PCR Not Detected (NotDetected)
--- NOTE | 2023-11-11 09:50 | PC.NURSE ---
Dr. Garces at [facility] for pt eval
--- NOTE | 2023-11-11 10:01 | PC.NURSE ---
FSBS: [id number]
[2023-11-11 10:06] LABS: POC Glucose,Bedside 234 (70-110)
--- NOTE | 2023-11-11 10:27 | PC.NURSE ---
pt returned from radiology.
--- NOTE | 2023-11-11 10:27 | PC.NURSE ---
Pt returned from RAD
[2023-11-11 11:12] VITALS: BP 120/80; PULSE 88; O2SAT 98
--- NOTE | 2023-11-11 11:14 | PC.NURSE ---
Rounded on pt. No needs voiced. Call light within reach.
--- NOTE | 2023-11-11 11:53 | HMH.EDGENADL ---
Discharge Plan Disposition Patient Disposition: Home, Self-Care Condition: Good Prescriptions Prescriptions: New ondansetron 4 mg tablet,disintegrating 4 mg PO Q8H PRN (Reason: nausea and vomiting) 4 Days Qty: 12 0RF No Action levothyroxine 200 mcg capsule 200 mcg PO DAILY Qty: 90 3RF Qelbree 200 mg capsule,extended release 24hr 200 mg PO .COMPLEX Qty: 60 1RF Rx Instructions: take 1 daily for 1 week; then increase to 2 capsules daily sildenafil 100 mg tablet See Rx Instructions .ROUTE .COMPLEX Qty: 10 0RF Dose Instruction: TAKE 1 TABLET BY MOUTH DAILY NEEDED FOR SEXUAL ACTIVITY; ADMINISTER 30 MINUTES TO 4 HOURS BEFORE ACTIVITY Rx Instructions: TAKE 1 TABLET BY MOUTH DAILY NEEDED FOR SEXUAL ACTIVITY; ADMINISTER 30 MINUTES TO 4 HOURS BEFORE ACTIVITY (DME) Dexcom G7 Sensor Device See Rx Instructions .Route Qty: 3 3RF Rx Instructions: As directed (DME) Dexcom G7 Element Winding Machine Tender Misc See Rx Instructions .Route Qty: 3 0RF Rx Instructions: As directed metformin 1,000 mg tablet See Rx Instructions .ROUTE .COMPLEX Qty: 180 0RF Dose Instruction: Take 1 tablet by mouth twice daily Rx Instructions: Take 1 tablet by mouth twice daily Jardiance 25 mg tablet See Rx Instructions .ROUTE .COMPLEX Qty: 90 0RF Dose Instruction: Take 1 tablet by mouth once daily Rx Instructions: Take 1 tablet by mouth once daily Referrals Follow up/Referrals: Josh López APRN [Primary Care Provider] - See instructions Activity Restrictions/Add. Instructions Additional Instructions/Restrictions: You were evaluated in the emergency department today. You were diagnosed with a viral syndrome. 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 Follow-up with your primary care provider for further reassessment. Take Tylenol and ibuprofen at home as needed for pain and fever. Return to the emergency department for new or worsening symptoms. [place] diet until your symptoms have resolved. Clinical Impressions Clinical Impression: Acute viral syndrome Stand Alone Forms Stand Alone Forms: Work/School Release Instructions Patient Instructions: DI for Viral Gastroenteritis -- Adult, DI for Viral Syndrome Discharge ED Provider: Padmini Garces General Adult HPI General Chief complaint: Upper Respiratory Infection Stated complaint: vomiting, weakness, congestion, cough Time Seen by Provider: 11/11/23 09:40 Mode of Arrival: Ambulatory Source of Information: Patient Limitations: No Limitations Description of Symptoms (Recalled from ER Triage Doc. by RN): pt to ed c/o cough, vomiting, fever. pt states he hasn't been able to keep anything down since saturday. History of Present Illness HPI narrative: This patient is a 38-year-old male who has a history of hypothyroidism, type 2 diabetes, and ADD presenting to the emergency department for evaluation with concern for intermittent fevers, cough, nausea, vomiting, and bodyaches since Saturday. He notes that he has not been able to keep much of anything down. No other concerns noted at this time, such as significant abdominal pain or other issues. Significant other at home has similar symptoms as well. Related Data Previous Rx's Medication Instructions Recorded sildenafil 100 mg tablet See Rx Instructions .Route 06/15/22 .COMPLEX #10 tabs levothyroxine 200 mcg capsule 200 mcg PO DAILY #90 caps 02/25/23 blood-glucose meter,continuous #3 ea 07/18/23 (Dexcom G7 Element Winding Machine Tender) blood-glucose sensor (Dexcom G7 #3 ea 07/18/23 Sensor device) metformin 1,000 mg tablet See Rx Instructions .Route 09/09/23 .COMPLEX #180 tabs empagliflozin 25 mg tablet See Rx Instructions .Route 10/10/23 (Jardiance) .COMPLEX #90 tabs viloxazine 200 mg capsule,extended 200 mg PO .COMPLEX #60 caps 11/04/23 release 24 hr (Qelbree) ondansetron 4 mg disintegrating 4 mg PO Q8H PRN nausea and
[2023-11-11 12:03] VITALS: BP 124/78; PULSE 82; RESP 16; TEMP 36.9; O2SAT 99
[2023-11-11 12:05] LABS: Influenza A, PCR Detected (NotDetected)
== END 2023-11-11 12:04 | disposition home or self-care (01) ==
PROVIDERS: Emergency Provider Emergency Medicine; PCP Nurse Practitioner Family
DX: R05.9 Cough, unspecified (principal); R11.2 Nausea with vomiting, unspecified; R50.9 Fever, unspecified; B34.9 Viral infection, unspecified; E03.9 Hypothyroidism, unspecified; E11.9 Type 2 diabetes mellitus without complications; F17.210 Nicotine dependence, cigarettes, uncomplicated
CPT/HCPCS: 71046; 82962; 87636; 99284

== ENCOUNTER 2023-11-13 10:09 | Inpatient (IN) | payer BC, SELFPAY ==
[2023-11-13] VITALS (19 sets, daily range): BP systolic 114–162; BP diastolic 64–94; PULSE 79–107; RESP 15–18; TEMP 36.8–37.1; O2SAT 95–100; BMI 20.9; BMI 20.5
--- NOTE | 2023-11-13 10:31 | XR_ITS ---
FINAL REPORT CLINICAL HISTORY: dyspnea COMPARISON: 11/11/2023 FINDINGS: The heart size is normal. The mediastinum is normal. There is no focal infiltrate or edema. There are no pleural effusions. There is no pneumothorax. There is no osseous abnormality. IMPRESSION: No acute cardiopulmonary process Reviewed, Interpreted and Dictated by Primo May MD Transcribed by Eve Schwartz Authenticated and [facility]
--- NOTE | 2023-11-13 10:32 | HMH.EDGENADL ---
Discharge Plan Disposition Patient Disposition: Admitted Prescriptions Prescriptions: No Action levothyroxine 200 mcg capsule 200 mcg PO DAILY Qty: 90 3RF Qelbree 200 mg capsule,extended release 24hr 200 mg PO .COMPLEX Qty: 60 1RF Rx Instructions: take 1 daily for 1 week; then increase to 2 capsules daily sildenafil 100 mg tablet See Rx Instructions .ROUTE .COMPLEX Qty: 10 0RF Dose Instruction: TAKE 1 TABLET BY MOUTH DAILY NEEDED FOR SEXUAL ACTIVITY; ADMINISTER 30 MINUTES TO 4 HOURS BEFORE ACTIVITY Rx Instructions: TAKE 1 TABLET BY MOUTH DAILY NEEDED FOR SEXUAL ACTIVITY; ADMINISTER 30 MINUTES TO 4 HOURS BEFORE ACTIVITY (DME) Dexcom G7 Sensor Device See Rx Instructions .Route Qty: 3 3RF Rx Instructions: As directed (DME) Dexcom G7 Bilingual Loan Processor Misc See Rx Instructions .Route Qty: 3 0RF Rx Instructions: As directed metformin 1,000 mg tablet See Rx Instructions .ROUTE .COMPLEX Qty: 180 0RF Dose Instruction: Take 1 tablet by mouth twice daily Rx Instructions: Take 1 tablet by mouth twice daily Jardiance 25 mg tablet See Rx Instructions .ROUTE .COMPLEX Qty: 90 0RF Dose Instruction: Take 1 tablet by mouth once daily Rx Instructions: Take 1 tablet by mouth once daily ondansetron 4 mg tablet,disintegrating 4 mg PO Q8H PRN (Reason: nausea and vomiting) 4 Days Qty: 12 0RF Referrals Follow up/Referrals: Josh López APRN [Primary Care Provider] - See instructions Clinical Impressions Clinical Impression: DKA (diabetic ketoacidosis), Influenza, Dehydration, Generalized weakness, Adverse effect of sodium-glucose cotransporter 2 (SGLT2) inhibitor Discharge ED Provider: Mita Wall General Adult HPI General Chief complaint: Weakness Stated complaint: cough, nauseous, weight loss Time Seen by Provider: 11/13/23 10:24 Mode of Arrival: Ambulatory Source of Information: Patient Limitations: No Limitations Description of Symptoms (Recalled from ER Triage Doc. by RN): c/o not being able to keep anything down other than clear liquids, weight loss of 20 lbs since Saturday, weakness History of Present Illness HPI narrative: Patient is a 38-year-old male presenting today with profound weakness. States that he has been sick since last Saturday which included gastrointestinal symptoms and a headache ultimately came to the emergency department on Saturday was diagnosed with the flu but has had persistent decreased p.o. intolerance and profound weakness. Denies any significant pain other than lower back crampiness. No fevers or chills headache is gone no active nausea vomiting at the moment no significant abdominal pain. He does state he has also had some dyspnea on exertion which is a new symptom for him. No chest pain. Related Data Previous Rx's Medication Instructions Recorded sildenafil 100 mg tablet See Rx Instructions .Route 06/15/22 .COMPLEX #10 tabs levothyroxine 200 mcg capsule 200 mcg PO DAILY #90 caps 02/25/23 blood-glucose meter,continuous #3 ea 07/18/23 (Dexcom G7 Bilingual Loan Processor) blood-glucose sensor (Dexcom G7 #3 ea 07/18/23 Sensor device) metformin 1,000 mg tablet See Rx Instructions .Route 09/09/23 .COMPLEX #180 tabs empagliflozin 25 mg tablet See Rx Instructions .Route 10/10/23 (Jardiance) .COMPLEX #90 tabs viloxazine 200 mg capsule,extended 200 mg PO .COMPLEX #60 caps 11/04/23 release 24 hr (Qelbree) ondansetron 4 mg disintegrating 4 mg PO Q8H PRN nausea and 11/11/23 tablet vomiting 4 days #12 tabs Allergies Allergy/AdvReac Type Severity Reaction Status Date / Time No Known Allergies Allergy Verified 11/04/23 13:49 [facility] Disclaimer: The information contained in this section may have been updated after the patient was seen, as this information can be updated by other users. Medical History Attention deficit disorder (ADD) in adult Diabetes Hypothyroidism Social History Smoking Status: Current every day smoker tobacco type: cigarettes packs per day: 1 and e-cigarettes second hand exposure: Yes alcohol intake: current counseling given: No substance use type: denies use and marijuana counseling given: No (he states that he smokes delta 8 on occasion; used to smoke a lot of THC) current occupational status: employed Travel in the last 8 weeks: None adopted: No caregiver/support person: No foster care: No household members: spouse housing: house lives independently: Yes marital status: number of children: 0 number of grandchildren: 3 education level: high school service: No pets and animals: Yes (boxer; pit mix; he is a year old) pets and animals: dog(s) Hx Recent Travel: No sexually active: Yes caffeine: Yes physical activity: none kassy/religious: None special kassy needs: No working smoke detector in home: Yes fire extinguisher in home: No carbon monox detector in home: Yes firearms in home: Yes firearms unloaded and locked: Yes do you feel safe at home: Yes victim of physical abuse: No victim of emotional abuse: No victim of sexual abuse: No would you like helpful sources: No ROS Obtained: Yes All systems reviewed & no additional complaints except as documented Physical Exam General General appearance: alert and in no apparent distress Respiratory Respiratory exam: Present normal lung sounds bilaterally; Absent respiratory distress, wheezes or stridor Cardiovascular Cardiovascular exam: Present regular rate; Absent tachycardia Abdominal Exam Abdominal exam: Present soft; Absent distention or tenderness Neurological Exam Neurological exam: Present alert and oriented X3 Medical Decision Making Sy Inquiry Pt receiving controlled substance: No Vital Signs: 11/13/23 10:10 11/13/23 10:30 Pulse Rate 98 H Pulse Rate [Left Radial] 107 H Respiratory Rate 18 Blood Pressure 144/90 H Blood Pressure [Right Arm] 148/94 H Blood Pressure Mean [Right Arm] 112 Blood Pressure Source [Right Arm] Automatic Cuff Blood Pressure Position [Right Arm] Sitting 02 Sat by Pulse Oximetry 100 100 Oxygen Delivery Method Room Air Lab Data Lab results reviewed: Yes I reviewed the patient's lab results. Lab Results 11/13/23 10:35: WBC 4.2 L, RBC 5.77, Hgb 19.0 H, Hct 52.9 H, MCV 91.7, MCH 33.0 H, MCHC 36.0 H, RDW 13.0, Plt Count 193, MPV 6.9 L, Neut % (Auto) 77.1, Lymph % (Auto) 15.3, Crenshaw % (Auto) 6.8, Eos % (Auto) 0.7, Baso % (Auto) 0.1, Neut # (Auto) 3.3, Lymph # (Auto) 0.7, Crenshaw # (Auto) 0.3, Eos # (Auto) 0.0, Baso # (Auto) 0.0, Sodium 129 L, Potassium 3.9, Chloride 94 L, Carbon Dioxide < 5 L*, Anion Gap 33.9 H, BUN 19, Creatinine 1.10, Estimated Creat Clear 86, Estimated GFR 75, Est GFR ( Amer) 91, Glucose 275 H, Calcium 7.7 L, Phosphorus 3.7, Magnesium 2.3, Total Bilirubin 0.8, AST 48, ALT 36, Alkaline Phosphatase 85, Total Protein 8.6 H, Albumin 5.2 H, Globulin 3.4 H, Albumin/Globulin Ratio 1.5 11/13/23 10:35 11/13/23 10:35 Orders (Tests/Meds): ED MEDICATIONS Generic Name Dose Route Start Last Admin Trade Name Freq PRN Reason Stop Dose Admin Potassium Chloride/Dextrose/Sod Cl 1,000 mls @ 250 mls/hr 11/13/23 12:00 Kcl 20 Meq In D5w-Ns IV 11/14/23 03:59 .Q4H JENNIE Insulin Human Regular 100 unit 101 mls @ 10.033 mls/hr 11/13/23 11:57 / Sodium Chloride IV 12/13/23 11:56 .Q10H4M JENNIE Protocol 0.15 UNITS/KG/HR Discontinued Medications Generic Name Dose Route Start Last Admin Trade Name Freq PRN Reason Stop Dose Admin Lactated Ringer's 1,000 mls @ 999 mls/hr 11/13/23 10:30 11/13/23 10:34 Lactated Ringer's 1000 Ml Bag IV 11/13/23 11:30 Not Given .Q1H1M JENNIE Lactated Ringer's 1,000 mls @ 999 mls/hr 11/13/23 10:30 11/13/23 10:45 Lactated Ringer's 1000 Ml Bag IV 11/13/23 11:30 999 mls/hr .Q1H1M JENNIE Administration Ketorolac Tromethamine 15 mg 11/13/23 10:30 11/13/23 10:44 Ketorolac 30mg/Ml Vial IV 11/13/23 10:31 15 mg ONCE ONE Administration Ondansetron HCl 4 mg 11/13/23 10:30 11/13/23 10:44 Ondansetron 4mg/2ml Vial IV 11/13/23 10:31 4 mg ONCE ONE Administration ORDERS Category Date Time Status CXR --portable [XR chest portable] Stat Exams 11/13/23 10:31 Completed Complete Blood Count Auto Diff Stat Lab 12/20/23 10:35 Completed Comprehensive Metabolic Panel Stat Lab 11/13/23 10:35 Results Magnesium Stat Lab 11/13/23 10:35 Completed Phosphorous Stat Lab 11/13/23 10:35 Completed Trop I [Troponin I] Stat Lab 11/13/23 10:35 Results Troponin I Q3H Lab 11/13/23 13:30 Ordered Troponin I Q3H Lab 11/13/23 16:30 Ordered Venous Blood Gas Stat RT 11/13/23 11:57 Ordered Medical Decision Narrative: Is a 38-year-old male presents today with recent diagnosis of the flu which was accompanied with GI symptoms which have since resolved but he has persistent decreased p.o. intolerance as well as some dyspnea on exertion. His cardiopulmonary exam is normal oxygen saturations are 99% he has a normal respiratory effort we will get a troponin and chest x-ray to rule out any type of consolidation or myocarditis which I do not suspect. Will give him IV fluids check basic electrolytes and reassess him but I believe that this is all secondary to an influenza diagnosis he also has diabetes and could have some complication with that including DKA etc. Reassessment 12 PM patient's labs significantly abnormal. Including an anion gap of 33 bicarb severely depressed awaiting pH but this is consistent with DKA. Glucose is only mildly elevated at 275. Patient is on an SGLT2 inhibitor, Jardiance, which is known to cause DKA and specifically euglycemic DKA. I will recommend that he stop this medication indefinitely and to discuss further with his primary care doctor. He will need to be admitted for close monitoring including an insulin infusion given the fact that his potassium is under 4 also is mildly hyponatremic we will start normal saline with dextrose and 20 of K per bag he will need close monitoring including every hour Accu-Cheks every 2 BMPs and pH is until this is resolved. Thus he will need intensive nursing care. I discussed this with the patient will discuss with hospital medicine admit the patient for further evaluation and treatment. Critical Care Critical Care Time Critical Care Time: Yes Attestation: On 11/13/23, the high probability of a clinically significant, sudden or life threatening deterioration of the following system(s) required my full and direct attention, intervention and personal management. The time I documented below is in addition to time spent performing reported procedures but includes the following listed in this critical care notation. Total Time Total Critical Care Time: 35
[2023-11-13] MEDS: KETOROLAC 30MG/ML VIAL 15 MG IV (10:44)
[2023-11-13] MEDS: ONDANSETRON 4MG/2ML VIAL 4 MG IV (10:44)
[2023-11-13] MEDS: LACTATED RINGERS 1000ML 1,000 ML 999 ML IV (10:45)
--- NOTE | 2023-11-13 10:45 | PC.NURSE ---
portable xray at
[2023-11-13 10:48] LABS: Basophils % 0.1 % (0.1-2.0); Eosinophils % 0.7 % (0.1-12.0); Hematocrit 52.9 % (42.0-52.0); Lymphocytes # 0.7 K/mm3 (0.7-4.5); Lymphocytes % 15.3 % (10-50); Mean Corpuscular Volume 91.7 fl (80-94); Mean Platelet Volume 6.9 fl (7.4-10.4); Monocytes # 0.3 K/mm3 (0.1-1.0); Monocytes % 6.8 % (1.7-9.3); Neutrophils # 3.3 K/mm3 (1.8-7.8); Neutrophils % 77.1 % (37.0-80.0); Platelet Count 193 K/mm3 (142-424); Red Blood Count 5.77 M/mm3 (4.60-6.20); White Blood Count 4.2 K/mm3 (4.8-10.8)
[2023-11-13 10:53] LABS: Chloride 94 mmol/L (98-107); Potassium 3.9 mmoL/L (3.5-5.1); Sodium 129 mmol/L (136-145)
[2023-11-13 10:56] LABS: Alanine Aminotransferase 36 U/L (12-78); Albumin Level 5.2 g/dl (3.5-5.0); Albumin/Globulin Ratio 1.5 (1.1-1.8); Alkaline Phosphatase 85 U/L (38-126); Aspartate Amino Transferase 48 U/L (17-59); Bilirubin,Total 0.8 mg/dl (0.2-1.3); Blood Urea Nitrogen 19 mg/dl (9-20); Creatinine Clearance Estimated 86 mL/min (50-200); Estimated Glomerular Filt Rate 75 ml/min (>60); GFR (African American) 91 ML/MIN (>60); Globulin 3.4 g/dL (1.3-3.2); Total Protein,Serum 8.6 g/dl (6.3-8.2)
[2023-11-13 10:57] LABS: Calcium 7.7 mg/dl (8.4-10.2); Glucose 275 mg/dl (74-100)
[2023-11-13 11:07] LABS: Magnesium 2.3 mg/dl (1.6-2.3); Phosphorous 3.7 mg/dl (2.5-4.5)
[2023-11-13 11:44] LABS: Anion Gap 33.9 mEq/L (5-15); Carbon Dioxide < 5 mmol/L (22.0-30.0)
--- NOTE | 2023-11-13 12:10 | PC.NURSE ---
speaking with Hospitalist
--- NOTE | 2023-11-13 12:13 | PC.NURSE ---
calling care management for bed assignment no answer at this time
--- NOTE | 2023-11-13 12:21 | PC.NURSE ---
Spoke with care management waiting for bed assignment
[2023-11-13 12:48] LABS: Troponin I < 0.01 ng/ml (0.00-0.034)
--- NOTE | 2023-11-13 12:59 | PC.NURSE ---
pt was given a warm blanket now resting in bed call light at bs
[2023-11-13] MEDS: INSULIN REGULAR, HUMAN 100 UNIT in 0.9 % SODIUM CHLORIDE 100 ML 6.69000000000000039 UNIT IV (13:00)
[2023-11-13] MEDS: D5W/0.9% NaCl w/20mEq KCL 1,000 ML 250 ML IV (13:00)
[2023-11-13 13:06] LABS: VBG Base Excess -23.8 mmol/L (-2.4-2.3); VBG HCO3 7.2 mmol/L (23-30); VBG Oxygen Saturation 87.8 % (50-70); VBG PCO2 28.9 mmol/L (35-51); VBG PO2 63.6 mmol/L (28-40); VBG Total CO2 8.1 mmol/L (23-27)
[2023-11-13 13:13] LABS: VBG PH 7.02 mmol/L (7.31-7.41)
[2023-11-13 13:22] LABS: Appearance,Urine CLEAR (Clear); Blood, Urine 2+ (Negative); Color,Urine YELLOW (Yellow); Glucose,Urine (UA) 2+ (Negative); Ketones,Urine 3+ (Negative); Leukocyte Esterase,Urine Negative (Negative); Microscopic, Urine URINE MICROSCOPIC (MICROSCOPIC); Nitrate,Urine Negative (Negative); PH,Urine 5.5 (5.0-8.5); Protein,Urine 1+ (Negative); Specific Gravity, Urine >= 1.030 (1.005-1.030); Urobilinogen,Urine 0.2 EU/dl (0.2)
[2023-11-13 13:26] LABS: VBG Base Excess -23.3 mmol/L (-2.4-2.3); VBG HCO3 6.8 mmol/L (23-30); VBG Oxygen Saturation 89.5 % (50-70); VBG PO2 56.5 mmol/L (28-40); VBG Total CO2 7.5 mmol/L (23-27)
[2023-11-13 13:26] LABS: Bilirubin,Urine 1+ (Negative)
[2023-11-13 13:29] LABS: VBG PCO2 23.7 mmol/L (35-51); VBG PH 7.08 mmol/L (7.31-7.41)
--- NOTE | 2023-11-13 13:32 | PC.NURSE ---
ph 7.08, aware
[2023-11-13] MEDS: SODIUM CHLORIDE 0.9% 10ML FLUSH SYRINGE 10 ML IV (13:35)
[2023-11-13] MEDS: BELLADONNA ALKALOIDS 60 ML ML PO (13:35)
[2023-11-13 13:39] LABS: POC Glucose,Bedside 316 (70-110)
[2023-11-13 13:42] LABS: Amorphous Sediment,Urine Trace /lpf; Bacteria,Urine Trace /lpf; RBC,Urine Occasional #/hpf (0-3); WBC,Urine Occasional #/hpf (0-3)
[2023-11-13 13:43] LABS: Mucus,Urine Trace /lpf
[2023-11-13 14:07] LABS: Troponin I < 0.01 ng/ml (0.00-0.034)
[2023-11-13 14:23] LABS: Chloride 94 mmol/L (98-107); Potassium 4.5 mmoL/L (3.5-5.1); Sodium 126 mmol/L (136-145)
[2023-11-13 14:25] LABS: Blood Urea Nitrogen 19 mg/dl (9-20); Creatinine Clearance Estimated 95 mL/min (50-200); Estimated Glomerular Filt Rate 84 ml/min (>60); GFR (African American) 102 ML/MIN (>60)
--- NOTE | 2023-11-13 14:25 | PC.NURSE ---
arrived by w/c from ED
[2023-11-13 14:26] LABS: Calcium 7.6 mg/dl (8.4-10.2); Glucose 298 mg/dl (74-100); Magnesium 2.3 mg/dl (1.6-2.3); Phosphorous 3.4 mg/dl (2.5-4.5)
--- NOTE | 2023-11-13 14:28 | PC.NURSE ---
pt arrived to room at this time.
[2023-11-13 14:42] LABS: Anion Gap 31.5 mEq/L (5-15)
[2023-11-13 14:47] LABS: Carbon Dioxide < 5 mmol/L (22.0-30.0)
[2023-11-13 14:51] LABS: Basophils % 0.3 % (0.1-2.0); Eosinophils % 0.8 % (0.1-12.0); Hematocrit 48.1 % (42.0-52.0); Lymphocytes # 0.7 K/mm3 (0.7-4.5); Lymphocytes % 15.9 % (10-50); Mean Corpuscular Hemoglobin 31.9 pg (27.0-31.2); Mean Corpuscular Volume 91.1 fl (80-94); Mean Platelet Volume 7.1 fl (7.4-10.4); Monocytes # 0.2 K/mm3 (0.1-1.0); Monocytes % 4.7 % (1.7-9.3); Neutrophils # 3.6 K/mm3 (1.8-7.8); Neutrophils % 78.3 % (37.0-80.0); Platelet Count 168 K/mm3 (142-424); Red Blood Count 5.28 M/mm3 (4.60-6.20); Red Cell Distribution Width 13.1 % (11.5-17.5); White Blood Count 4.6 K/mm3 (4.8-10.8)
[2023-11-13 14:57] LABS: Hemoglobin 16.8 g/dL (14.1-18.0)
[2023-11-13 14:57] LABS: Acetone, Serum (Rapid) Moderate (None Detect)
[2023-11-13 15:00] LABS: Glucose,Random 320 mg/dL (74-100)
[2023-11-13] MEDS: 0.9 % SODIUM CHLORIDE 1000ML 1,000 ML 150 ML IV (15:04)
[2023-11-13 15:08] LABS: Hemoglobin A1C 9.4 % (4.0-6.0)
[2023-11-13] MEDS: INSULIN REGULAR, HUMAN 100 UNIT in 0.9 % SODIUM CHLORIDE 100 ML 5.04999999999999982 UNIT IV (15:19)
--- NOTE | 2023-11-13 15:26 | PC.NURSE ---
Tricia at bedside to obtain venipucture glucose. glucose just obtained per this nurse by fingerstick and was notified. Tricia to return for BMP and troponin at scheduled time.
[2023-11-13] MEDS: Dextrose 5 % and 0.9 % NaCl 1,000 ML 150 ML IV (16:45)
--- NOTE | 2023-11-13 17:34 | PC.NURSE ---
notified of pt drinking 6-8 oz of alcohol daily for CIWA orders.
--- NOTE | 2023-11-13 17:38 | EXP.HP ---
History of Present Illness *Admission Date: 11/13/23 *Reason for visit:: feeling sick *History of present illness: Patient is a 38-year-old male with past medical history of diabetes mellitus type 2, alcohol abuse who presented to hospital due to feeling sick. According to patient she had flu for the past 1 week since then he has been getting worse, he has not been able to hold down the foods, has been feeling generalized abdominal pain. He also has associated nausea as well as vomiting. Denies diarrhea. He had dry cough. He mentions his is also sick at home. He also has been drinking regularly and drinks 6 to 8 ounces of beers every day. [facility] Disclaimer: The information contained in this section may have been updated after the patient was seen, as this information can be updated by other users. Medical History Attention deficit disorder (ADD) in adult Diabetes Hypothyroidism Social History (Updated 11/13/23 @ 14:35 by Linda Lamar RN) Smoking Status: Current every day smoker tobacco type: cigarettes packs per day: 1 and e-cigarettes second hand exposure: Yes alcohol intake: current counseling given: No substance use type: denies use and marijuana counseling given: No (he states that he smokes delta 8 on occasion; used to smoke a lot of THC) current occupational status: employed Travel in the last 8 weeks: None adopted: No caregiver/support person: No foster care: No household members: spouse housing: house lives independently: Yes marital status: number of children: 0 number of grandchildren: 3 education level: high school service: No pets and animals: Yes (boxer; pit mix; he is a year old) pets and animals: dog(s) Hx Recent Travel: No sexually active: Yes caffeine: Yes physical activity: none kassy/buddhist: None special kassy needs: No working smoke detector in home: Yes fire extinguisher in home: No carbon monox detector in home: Yes firearms in home: Yes firearms unloaded and locked: Yes do you feel safe at home: Yes victim of physical abuse: No victim of emotional abuse: No victim of sexual abuse: No would you like helpful sources: No Review of Systems Review of Systems Review of systems (narrative): as per HPI Meds Home Medications and Allergies Home Medications Medication Instructions Recorded Confirmed Type levothyroxine 200 mcg capsule 200 mcg PO DAILY #90 caps 02/25/23 11/04/23 Rx blood-glucose meter,continuous #3 ea 07/18/23 11/04/23 Rx (Dexcom G7 Senior Technical Business Analyst) blood-glucose sensor (Dexcom G7 #3 ea 07/18/23 11/04/23 Rx Sensor device) metformin 1,000 mg tablet See Rx Instructions .Route 09/09/23 11/04/23 Rx .COMPLEX #180 tabs empagliflozin 25 mg tablet See Rx Instructions .Route 10/10/23 11/04/23 Rx (Jardiance) .COMPLEX #90 tabs viloxazine 200 mg capsule,extended 200 mg PO .COMPLEX #60 caps 11/04/23 11/04/23 Rx release 24 hr (Qelbree) ondansetron 4 mg disintegrating 4 mg PO Q8H PRN nausea and 11/11/23 Rx tablet vomiting 4 days #12 tabs New Prescriptions to Start Prescriptions: Allergies Allergy/AdvReac Type Severity Reaction Status Date / Time No Known Allergies Allergy Verified 11/04/23 13:49 Exam Data for Last 24 hours Vital signs and Labs for Last 24 Hours: Temp Pulse Resp BP Pulse Ox O2 Del Method 98.2 F 80 18 128/76 99 Room Air 11/13/23 14:48 11/13/23 16:00 11/13/23 15:43 11/13/23 15:43 11/13/23 16:06 11/13/23 17:00 Laboratory Results - last 24 hr 11/13/23 10:35: WBC 4.2 L, RBC 5.77, Hgb 19.0 H, Hct 52.9 H, MCV 91.7, MCH 33.0 H, MCHC 36.0 H, RDW 13.0, Plt Count 193, MPV 6.9 L, Neut % (Auto) 77.1, Lymph % (Auto) 15.3, Whitfield % (Auto) 6.8, Eos % (Auto) 0.7, Baso % (Auto) 0.1, Neut # (Auto) 3.3, Lymph # (Auto) 0.7, Whitfield # (Auto) 0.3, Eos # (Auto) 0.0, Baso # (Auto) 0.0, Sodium 129 L, Potassium 3.9, Chloride 94 L, Carbon Dioxide < 5 L*, Anion Gap 33.9 H, BUN 19, Creatinine 1.10, Estimated Creat Clear 86, Estimated GFR 75, Est GFR ( Amer) 91, Glucose 275 H, Hemoglobin A1c 9.4 H, Calcium 7.7 L, Phosphorus 3.7, Magnesium 2.3, Total Bilirubin 0.8, AST 48, ALT 36, Alkaline Phosphatase 85, Troponin I < 0.01, Total Protein 8.6 H, Albumin 5.2 H, Globulin 3.4 H, Albumin/Globulin Ratio 1.5 11/13/23 11:57: VBG pH 7.02 L, VBG pCO2 28.9 L, VBG pO2 63.6 H, VBG HCO3 7.2 L, VBG Total CO2 8.1 L, VBG O2 Saturation 87.8 H, VBG Base Excess -23.8 L 11/13/23 12:57: Urine Color Yellow, Urine Appearance Clear, Urine pH 5.5, Ur Specific Bowen >= 1.030, Urine Protein 1+, Urine Glucose (UA) 2+, Urine Ketones 3+, Urine Blood 2+, Urine Nitrate Negative, Urine Bilirubin 1+ A, Urine Urobilinogen 0.2, Ur Leukocyte Esterase Negative, Urine RBC Occasional, Urine WBC Occasional, Amorphous Sediment Trace, Urine Bacteria Trace, Urine Mucus Trace 11/13/23 13:21: VBG pH 7.08 L, VBG pCO2 23.7 L, VBG pO2 56.5 H, VBG HCO3 6.8 L, VBG Total CO2 7.5 L, VBG O2 Saturation 89.5 H, VBG Base Excess -23.3 L 11/13/23 13:25: Sodium 126 L, Potassium 4.5, Chloride 94 L, Carbon Dioxide < 5 L*, Anion Gap 31.5 H, BUN 19, Creatinine 1.00, Estimated Creat Clear 95, Estimated GFR 84, Est GFR ( Amer) 102, Glucose 298 H, Calcium 7.6 L, Phosphorus 3.4, Magnesium 2.3, Troponin I < 0.01, Acetone Level Moderate 11/13/23 13:32: POC Glucose 316 H* 11/13/23 14:35: WBC 4.6 L, RBC 5.28, Hgb 16.8 D, Hct 48.1, MCV 91.1, MCH 31.9 H, MCHC 35.0, RDW 13.1, Plt Count 168, MPV 7.1 L, Neut % (Auto) 78.3, Lymph % (Auto) 15.9, Whitfield % (Auto) 4.7, Eos % (Auto) 0.8, Baso % (Auto) 0.3, Neut # (Auto) 3.6, Lymph # (Auto) 0.7, Whitfield # (Auto) 0.2, Eos # (Auto) 0.0, Baso # (Auto) 0.0, Random Glucose 320 H I & O for Last 24 hours: Intake & Output 11/10/23 11/11/23 11/12/23 11/13/23 23:59 23:59 23:59 23:59 Intake Total 1415 / 1415 Output Total 700 / 700 Balance 715 / 715 Weight 66.905 kg Constitutional Constitutional: no acute distress *Routine HEENT Exam Head: Present normocephalic Eye: Present EOMI and PERRL ENT: Present mucous membranes moist *Routine Neck Exam Neck: Present supple; Absent lymphadenopathy *Routine Respiratory Exam Respiratory: Present CTA bilaterally *Routine Cardiovascular Exam Cardiovascular: Present RRR *Routine Abdominal Exam Abdominal: Present soft and normoactive bowel sounds; Absent tenderness *Routine Rectal Exam Rectal:: deferred *Routine Genitalia Exam Genitalia:: deferred *Routine Extremities Exam Extremities: Absent cyanosis, clubbing or edema *Routine Skin Exam Skin: Present warm; Absent rash *Routine Neurological Exam Neurological: Present alert and oriented X3 Assessment and Plan *Assessment and plan (1) DKA (diabetic ketoacidosis): Status: Acute Category: Medical Code(s): E11.10 - Type 2 diabetes mellitus with ketoacidosis without coma (2) Influenza: Status: Acute Category: Medical Code(s): J11.1 - Influenza due to unidentified influenza virus with other respiratory manifestations (3) Dehydration: Status: Acute Category: Medical Code(s): E86.0 - Dehydration Plan Patient is a 38-year-old male with past medical history of diabetes mellitus type 2, alcohol abuse who presented to hospital due to feeling sick. According to patient she had flu for the past 1 week since then he has been getting worse, he has not been able to hold down the foods, has been feeling generalized abdominal pain. He also has associated nausea as well as vomiting. Denies diarrhea. He had dry cough. He mentions his is also sick at home. He also has been drinking regularly and drinks 6 to 8 ounces of beers every day. Assessment Diabetic ketoacidosis Dehydration Upper respiratory tract infection, influenza type A History of hypothyroidism Plan Aggressive IV fluid hydration IV insulin BMP every 4 hours, POC glucose checks every hour CIWA assessment with as needed ativan, FA, MVS, B1 Resume home levothyroxine Monitor and replace electrolytes DVT prophylaxis-heparin
[2023-11-13 17:53] LABS: Anion Gap 20.6 mEq/L (5-15); Blood Urea Nitrogen 16 mg/dl (9-20); Calcium 7.1 mg/dl (8.4-10.2); Chloride 98 mmol/L (98-107); Creatinine Clearance Estimated 106 mL/min (50-200); Estimated Glomerular Filt Rate 95 ml/min (>60); GFR (African American) 115 ML/MIN (>60); Glucose 178 mg/dl (74-100); Glucose,Random 178 mg/dL (74-100); Potassium 3.6 mmoL/L (3.5-5.1); Sodium 125 mmol/L (136-145)
[2023-11-13 17:56] LABS: Carbon Dioxide 10 mmol/L (22.0-30.0); Troponin I < 0.01 ng/ml (0.00-0.034)
--- NOTE | 2023-11-13 18:07 | PC.NURSE ---
Folic Acid not available at this time. Checked M/S, ICU and ED omnicell.
[2023-11-13] MEDS: THIAMINE 100MG TABLET 100 MG PO (18:10)
--- NOTE | 2023-11-13 18:10 | PC.NURSE ---
Una, lab at bedside.
[2023-11-13 18:31] LABS: Basophils % 0.8 % (0.1-2.0); Eosinophils % 0.2 % (0.1-12.0); Hematocrit 45.2 % (42.0-52.0); Hemoglobin 16.2 g/dL (14.1-18.0); Lymphocytes % 19.1 % (10-50); Mean Corpuscular HGB Conc 35.9 g/dL (31.8-35.4); Mean Corpuscular Hemoglobin 32.3 pg (27.0-31.2); Mean Platelet Volume 8.1 fl (7.4-10.4); Monocytes # 0.4 K/mm3 (0.1-1.0); Monocytes % 7.2 % (1.7-9.3); Neutrophils # 3.7 K/mm3 (1.8-7.8); Neutrophils % 72.6 % (37.0-80.0); Platelet Count 162 K/mm3 (142-424); Red Blood Count 5.03 M/mm3 (4.60-6.20); Red Cell Distribution Width 13.2 % (11.5-17.5); White Blood Count 5.1 K/mm3 (4.8-10.8)
[2023-11-13 18:42] LABS: Chloride 99 mmol/L (98-107); Potassium 3.4 mmoL/L (3.5-5.1); Sodium 127 mmol/L (136-145)
[2023-11-13 18:44] LABS: Alanine Aminotransferase 28 U/L (12-78); Anion Gap 20.4 mEq/L (5-15); Aspartate Amino Transferase 36 U/L (17-59); Blood Urea Nitrogen 17 mg/dl (9-20); Carbon Dioxide 11 mmol/L (22.0-30.0); Creatinine Clearance Estimated 120 mL/min (50-200); Estimated Glomerular Filt Rate 109 ml/min (>60); GFR (African American) 132 ML/MIN (>60)
[2023-11-13 18:44] LABS: Glucose,Random 169 mg/dL (74-100)
[2023-11-13 18:45] LABS: Activated Partial Thrombo Time 29.5 seconds (22.8-30.6); Albumin Level 4.2 g/dl (3.5-5.0); Albumin/Globulin Ratio 1.7 (1.1-1.8); Alkaline Phosphatase 60 U/L (38-126); Bilirubin,Total 0.5 mg/dl (0.2-1.3); Calcium 6.8 mg/dl (8.4-10.2); Globulin 2.5 g/dL (1.3-3.2); Glucose 168 mg/dl (74-100); Magnesium 2.3 mg/dl (1.6-2.3); Total Protein,Serum 6.7 g/dl (6.3-8.2)
--- NOTE | 2023-11-13 18:49 | PC.NURSE ---
Dr. Echeverria notified of pt's glucose 150, anion gap 20.6. MD wants insulin drip to stay at 5u/hr and keep fluids infusing at 150 ml/hr.
--- NOTE | 2023-11-13 19:02 | PC.NURSE ---
Dr. Echeverria notified of pt's phosphorus of 2.0, no new orders at this time
[2023-11-13 19:50] LABS: Glucose,Random 151 mg/dL (74-100)
--- NOTE | 2023-11-13 21:15 | PC.NURSE ---
E Lisandro SCHUMACHER states to turn D5 down to 75ml/hr and follow protocol for insulin rate at this time.
[2023-11-13 22:26] LABS: POC Glucose,Bedside 111 (70-110)
[2023-11-13 22:26] LABS: POC Glucose,Bedside 166 (70-110)
[2023-11-13 22:26] LABS: POC Glucose,Bedside 187 (70-110)
[2023-11-13 22:26] LABS: POC Glucose,Bedside 151 (70-110)
[2023-11-13 22:26] LABS: POC Glucose,Bedside 150 (70-110)
[2023-11-13 22:26] LABS: POC Glucose,Bedside 248 (70-110)
[2023-11-13 22:26] LABS: POC Glucose,Bedside 141 (70-110)
[2023-11-13 22:26] LABS: POC Glucose,Bedside 305 (70-110)
[2023-11-13 22:28] LABS: Chloride 101 mmol/L (98-107); Potassium 3.5 mmoL/L (3.5-5.1); Sodium 128 mmol/L (136-145)
[2023-11-13 22:31] LABS: Anion Gap 18.5 mEq/L (5-15); Blood Urea Nitrogen 15 mg/dl (9-20); Carbon Dioxide 12 mmol/L (22.0-30.0); Creatinine Clearance Estimated 137 mL/min (50-200); Estimated Glomerular Filt Rate 127 ml/min (>60); GFR (African American) 154 ML/MIN (>60); Glucose 114 mg/dl (74-100)
[2023-11-14] VITALS (29 sets, daily range): BP systolic 112–134; BP diastolic 63–82; PULSE 75–90; RESP 14–20; TEMP 36.7–37.1; O2SAT 95–100; BMI 20.8
[2023-11-14 00:38] LABS: POC Glucose,Bedside 110 (70-110)
[2023-11-14 00:38] LABS: POC Glucose,Bedside 112 (70-110)
[2023-11-14 01:43] LABS: Anion Gap 15.7 mEq/L (5-15); Blood Urea Nitrogen 13 mg/dl (9-20); Calcium 7.1 mg/dl (8.4-10.2); Carbon Dioxide 15 mmol/L (22.0-30.0); Chloride 101 mmol/L (98-107); Creatinine Clearance Estimated 120 mL/min (50-200); Estimated Glomerular Filt Rate 109 ml/min (>60); GFR (African American) 132 ML/MIN (>60); Glucose 132 mg/dl (74-100); Magnesium 2.3 mg/dl (1.6-2.3); Potassium 3.7 mmoL/L (3.5-5.1); Sodium 128 mmol/L (136-145)
[2023-11-14 01:45] LABS: Phosphorous 1.6 mg/dl (2.5-4.5)
[2023-11-14] MEDS: Dextrose 5 % and 0.9 % NaCl 1,000 ML 75 ML IV ×3 (02:24→23:57)
[2023-11-14 05:49] LABS: POC Glucose,Bedside 139 (70-110)
[2023-11-14 05:49] LABS: POC Glucose,Bedside 140 (70-110)
[2023-11-14 05:49] LABS: POC Glucose,Bedside 125 (70-110)
[2023-11-14 05:49] LABS: POC Glucose,Bedside 143 (70-110)
[2023-11-14 05:49] LABS: POC Glucose,Bedside 126 (70-110)
[2023-11-14 07:05] LABS: Chloride 101 mmol/L (98-107); Potassium 3.3 mmoL/L (3.5-5.1); Sodium 130 mmol/L (136-145)
[2023-11-14 07:06] LABS: Basophils % 0.1 % (0.1-2.0); Eosinophils % 0.1 % (0.1-12.0); Hematocrit 42.6 % (42.0-52.0); Hemoglobin 15.5 g/dL (14.1-18.0); Lymphocytes # 0.7 K/mm3 (0.7-4.5); Lymphocytes % 17.8 % (10-50); Mean Corpuscular HGB Conc 36.5 g/dL (31.8-35.4); Mean Corpuscular Hemoglobin 32.6 pg (27.0-31.2); Mean Corpuscular Volume 89.4 fl (80-94); Mean Platelet Volume 8.1 fl (7.4-10.4); Monocytes # 0.4 K/mm3 (0.1-1.0); Monocytes % 9.2 % (1.7-9.3); Neutrophils # 2.9 K/mm3 (1.8-7.8); Neutrophils % 72.9 % (37.0-80.0); Platelet Count 153 K/mm3 (142-424); Red Blood Count 4.76 M/mm3 (4.60-6.20); Red Cell Distribution Width 13.4 % (11.5-17.5)
[2023-11-14 07:08] LABS: Blood Urea Nitrogen 14 mg/dl (9-20); Creatinine Clearance Estimated 138 mL/min (50-200); Estimated Glomerular Filt Rate 127 ml/min (>60); GFR (African American) 154 ML/MIN (>60)
[2023-11-14 07:09] LABS: Anion Gap 18.3 mEq/L (5-15); Calcium 7.1 mg/dl (8.4-10.2); Carbon Dioxide 14 mmol/L (22.0-30.0); Glucose 141 mg/dl (74-100)
[2023-11-14 07:28] LABS: Acetone, Serum (Rapid) Small (None Detect)
[2023-11-14 07:36] LABS: POC Glucose,Bedside 137 (70-110)
[2023-11-14 07:36] LABS: POC Glucose,Bedside 139 (70-110)
[2023-11-14 08:46] LABS: POC Glucose,Bedside 157 (70-110)
[2023-11-14] MEDS: FOLIC ACID 1MG TABLET 1 MG PO (09:02)
[2023-11-14] MEDS: THIAMINE 100MG TABLET 100 MG PO (09:02)
[2023-11-14] MEDS: LEVOTHYROXINE 100MCG (0.1MG) TAB 200 MCG PO (09:02)
[2023-11-14 09:46] LABS: POC Glucose,Bedside 145 (70-110)
--- NOTE | 2023-11-14 09:56 | PC.NURSE ---
lab at bedside for bmp
[2023-11-14 10:15] LABS: Chloride 102 mmol/L (98-107); Potassium 3.2 mmoL/L (3.5-5.1); Sodium 130 mmol/L (136-145)
--- NOTE | 2023-11-14 10:15 | HMH.PHAINT1 ---
Pharmacy Intervention Comments: Verified home med list with patient at bedside and with external pharmacy list
[2023-11-14 10:18] LABS: Blood Urea Nitrogen 12 mg/dl (9-20); Creatinine Clearance Estimated 161 mL/min (50-200); Estimated Glomerular Filt Rate 152 ml/min (>60); GFR (African American) 183 ML/MIN (>60)
[2023-11-14 10:19] LABS: Anion Gap 17.2 mEq/L (5-15); Calcium 7.2 mg/dl (8.4-10.2); Carbon Dioxide 14 mmol/L (22.0-30.0); Glucose 146 mg/dl (74-100)
[2023-11-14] MEDS: SODIUM CHLORIDE 1015 ML IV (11:23)
[2023-11-14 11:41] LABS: POC Glucose,Bedside 135 (70-110)
--- NOTE | 2023-11-14 13:30 | PC.NURSE ---
lab at bedside to obtain bmp.
[2023-11-14 14:12] LABS: Chloride 105 mmol/L (98-107); Potassium 3.6 mmoL/L (3.5-5.1); Sodium 131 mmol/L (136-145)
[2023-11-14 14:15] LABS: Blood Urea Nitrogen 10 mg/dl (9-20); Creatinine Clearance Estimated 138 mL/min (50-200); Estimated Glomerular Filt Rate 127 ml/min (>60); GFR (African American) 154 ML/MIN (>60); Magnesium 2.2 mg/dl (1.6-2.3)
[2023-11-14 14:16] LABS: Anion Gap 16.6 mEq/L (5-15); Calcium 6.5 mg/dl (8.4-10.2); Carbon Dioxide 13 mmol/L (22.0-30.0); Glucose 138 mg/dl (74-100)
[2023-11-14 14:23] LABS: Phosphorous 1.4 mg/dl (2.5-4.5)
[2023-11-14 15:45] LABS: POC Glucose,Bedside 133 (70-110)
[2023-11-14 15:45] LABS: POC Glucose,Bedside 132 (70-110)
--- NOTE | 2023-11-14 16:19 | EXP.PN ---
Subjective *Date: 11/14/23 *Time: 16:19 Interval history: patient was seen and evaluated at the bedside. No reported acute events overnight, denies chest pain, shortness of breath, nausea, vomiting, abdominal pain. Exam Data for Last 24 hours Vital signs and Labs for Last 24 Hours: Temp Pulse Resp BP Pulse Ox O2 Del Method 98.3 F 85 18 116/70 96 Room Air 11/14/23 15:54 11/14/23 14:51 11/14/23 14:51 11/14/23 14:51 11/14/23 16:00 11/14/23 16:00 Laboratory Results - last 24 hr 11/13/23 14:40: POC Glucose 305 H* 11/13/23 15:42: POC Glucose 248 H 11/13/23 16:33: POC Glucose 187 H 11/13/23 17:02: Sodium 125 L, Potassium 3.6, Chloride 98, Carbon Dioxide 10 L D, Anion Gap 20.6 H, BUN 16, Creatinine 0.90, Estimated Creat Clear 106, Estimated GFR 95, Est GFR ( Amer) 115, Glucose 178 H D, Random Glucose 178 H, Calcium 7.1 L, Troponin I < 0.01 11/13/23 17:46: POC Glucose 166 H 11/13/23 18:00: WBC 5.1, RBC 5.03, Hgb 16.2, Hct 45.2, MCV 90.0, MCH 32.3 H, MCHC 35.9 H, RDW 13.2, Plt Count 162, MPV 8.1, Neut % (Auto) 72.6, Lymph % (Auto) 19.1, [place] % (Auto) 7.2, Eos % (Auto) 0.2, Baso % (Auto) 0.8, Neut # (Auto) 3.7, Lymph # (Auto) 1.0, [place] # (Auto) 0.4, Eos # (Auto) 0.0, Baso # (Auto) 0.0, APTT 29.5, Sodium 127 L, Potassium 3.4 L, Chloride 99, Carbon Dioxide 11 L, Anion Gap 20.4 H, BUN 17, Creatinine 0.80, Estimated Creat Clear 120, Estimated GFR 109, Est GFR ( Amer) 132, Glucose 168 H, Calcium 6.8 L, Phosphorus 2.0 L D, Magnesium 2.3, Total Bilirubin 0.5, AST 36, ALT 28, Alkaline Phosphatase 60, Total Protein 6.7, Albumin 4.2 D, Globulin 2.5, Albumin/Globulin Ratio 1.7 11/13/23 18:05: Random Glucose 169 H 11/13/23 18:41: POC Glucose 150 H 11/13/23 19:25: Random Glucose 151 H 11/13/23 19:46: POC Glucose 151 H 11/13/23 20:46: POC Glucose 141 H 11/13/23 20:55: Sodium 128 L, Potassium 3.5, Chloride 101, Carbon Dioxide 12 L, Anion Gap 18.5 H, BUN 15, Creatinine 0.70, Estimated Creat Clear 137, Estimated GFR 127, Est GFR ( Amer) 154, Glucose 114 H D, Calcium 7.0 L 11/13/23 21:46: POC Glucose 111 H 11/13/23 22:43: POC Glucose 110 11/14/23 00:01: POC Glucose 112 H 11/14/23 01:15: POC Glucose 126 H 11/14/23 01:26: Sodium 128 L, Potassium 3.7, Chloride 101, Carbon Dioxide 15 L, Anion Gap 15.7 H, BUN 13, Creatinine 0.80, Estimated Creat Clear 120, Estimated GFR 109, Est GFR ( Amer) 132, Glucose 132 H, Calcium 7.1 L, Phosphorus 1.6 L, Magnesium 2.3 11/14/23 02:28: POC Glucose 125 H 11/14/23 03:25: POC Glucose 140 H 11/14/23 04:23: POC Glucose 139 H 11/14/23 05:35: POC Glucose 143 H 11/14/23 06:11: WBC 4.0 L, RBC 4.76, Hgb 15.5, Hct 42.6, MCV 89.4, MCH 32.6 H, MCHC 36.5 H, RDW 13.4, Plt Count 153, MPV 8.1, Neut % (Auto) 72.9, Lymph % (Auto) 17.8, [place] % (Auto) 9.2, Eos % (Auto) 0.1, Baso % (Auto) 0.1, Neut # (Auto) 2.9, Lymph # (Auto) 0.7, [place] # (Auto) 0.4, Eos # (Auto) 0.0, Baso # (Auto) 0.0, Sodium 130 L, Potassium 3.3 L, Chloride 101, Carbon Dioxide 14 L, Anion Gap 18.3 H, BUN 14, Creatinine 0.70, Estimated Creat Clear 138, Estimated GFR 127, Est GFR ( Amer) 154, Glucose 141 H, Calcium 7.1 L, Acetone Level Small 11/14/23 06:27: POC Glucose 137 H 11/14/23 07:24: POC Glucose 139 H 11/14/23 08:33: POC Glucose 157 H 11/14/23 09:38: POC Glucose 145 H 11/14/23 09:52: Sodium 130 L, Potassium 3.2 L, Chloride 102, Carbon Dioxide 14 L, Anion Gap 17.2 H, BUN 12, Creatinine 0.60 L, Estimated Creat Clear 161, Estimated GFR 152, Est GFR ( Amer) 183, Glucose 146 H, Calcium 7.2 L 11/14/23 11:28: POC Glucose 135 H 11/14/23 13:14: POC Glucose 133 H 11/14/23 13:29: Sodium 131 L, Potassium 3.6, Chloride 105, Carbon Dioxide 13 L, Anion Gap 16.6 H, BUN 10, Creatinine 0.70, Estimated Creat Clear 138, Estimated GFR 127, Est GFR ( Amer) 154, Glucose 138 H, Calcium 6.5 L, Phosphorus 1.4 L, Magnesium 2.2 11/14/23 15:30: POC Glucose 132 H I & O for Last 24 hours: Intake & Output 11/11/23 11/12/23 11/13/23 11/14/23 23:59 23:59 23:59 23:59 Intake Total 1777.481 / 2521.481 2646 / 2646 Output Total 700 / 700 1850 / 1850 Balance 1077.481 / 1821.481 796 / 796 Weight 66.905 kg 67.54 kg Constitutional Constitutional: no acute distress *Routine HEENT Exam Head: Present normocephalic Eye: Present EOMI and PERRL ENT: Present mucous membranes moist *Routine Neck Exam Neck: Present supple; Absent lymphadenopathy *Routine Respiratory Exam Respiratory: Present CTA bilaterally *Routine Cardiovascular Exam Cardiovascular: Present RRR *Routine Abdominal Exam Abdominal: Present soft and normoactive bowel sounds; Absent tenderness *Routine Extremities Exam Extremities: Absent cyanosis, clubbing or edema *Routine Skin Exam Skin: Present warm; Absent rash *Routine Neurological Exam Neurological: Present alert and oriented X3 Assessment and Plan *Assessment and plan (1) DKA (diabetic ketoacidosis): Status: Acute Category: Medical Code(s): E11.10 - Type 2 diabetes mellitus with ketoacidosis without coma (2) Influenza: Status: Acute Category: Medical Code(s): J11.1 - Influenza due to unidentified influenza virus with other respiratory manifestations (3) Dehydration: Status: Acute Category: Medical Code(s): E86.0 - Dehydration Plan Patient is a 38-year-old male with past medical history of diabetes mellitus type 2, alcohol abuse who presented to hospital due to feeling sick. According to patient she had flu for the past 1 week since then he has been getting worse, he has not been able to hold down the foods, has been feeling generalized abdominal pain. He also has associated nausea as well as vomiting. Denies diarrhea. He had dry cough. He mentions his is also sick at home. He also has been drinking regularly and drinks 6 to 8 ounces of beers every day. Assessment Diabetic ketoacidosis Dehydration Upper respiratory tract infection, influenza type A History of hypothyroidism Plan Aggressive IV fluid hydration - continue IV insulin - continue BMP every 4 hours, POC glucose checks every hour CIWA assessment with as needed ativan, FA, MVS, B1 Resume home levothyroxine Monitor and replace electrolytes DVT prophylaxis-heparin DC tomorrow, continue current DKA managment
--- NOTE | 2023-11-14 16:24 | PC.NURSE ---
lab at bedside to obtain bmp.
[2023-11-14] MEDS: CALCIUM CARBONATE 500MG CHEWTAB 500 MG PO (16:33)
[2023-11-14] MEDS: K-PHOS NEUTRAL 250MG TABLET 250 MG PO (16:33)
[2023-11-14] MEDS: MULTIVITAMIN TABLET 1 EACH PO (16:33)
[2023-11-14 16:57] LABS: Chloride 103 mmol/L (98-107); Potassium 3.2 mmoL/L (3.5-5.1); Sodium 133 mmol/L (136-145)
[2023-11-14 16:59] LABS: Blood Urea Nitrogen 8 mg/dl (9-20); Creatinine Clearance Estimated 161 mL/min (50-200); Estimated Glomerular Filt Rate 152 ml/min (>60); GFR (African American) 183 ML/MIN (>60)
[2023-11-14 17:00] LABS: Anion Gap 19.2 mEq/L (5-15); Carbon Dioxide 14 mmol/L (22.0-30.0); Glucose 146 mg/dl (74-100)
[2023-11-14] MEDS: INSULIN REGULAR, HUMAN 100 UNIT in 0.9 % SODIUM CHLORIDE 100 ML 1.01000000000000001 UNIT IV (18:35)
[2023-11-14 20:20] LABS: POC Glucose,Bedside 139 (70-110)
[2023-11-14 20:49] LABS: Chloride 104 mmol/L (98-107)
[2023-11-14 20:50] LABS: Sodium 130 mmol/L (136-145)
[2023-11-14 20:52] LABS: Blood Urea Nitrogen 7 mg/dl (9-20); Creatinine Clearance Estimated 193 mL/min (50-200); Estimated Glomerular Filt Rate 187 ml/min (>60); GFR (African American) 226 ML/MIN (>60)
[2023-11-14 20:53] LABS: Calcium 6.7 mg/dl (8.4-10.2); Carbon Dioxide 13 mmol/L (22.0-30.0); Glucose 148 mg/dl (74-100)
[2023-11-14] MEDS: POTASSIUM CHLORIDE 20MEQ TAB 40 MEQ PO (21:24)
[2023-11-15] VITALS (23 sets, daily range): BP systolic 113–144; BP diastolic 65–88; PULSE 84–106; RESP 16–22; TEMP 36.8–37.7; O2SAT 93–97; BMI 20.7
[2023-11-15 00:35] LABS: Carbon Dioxide 15 mmol/L (22.0-30.0); Chloride 102 mmol/L (98-107); Glucose 147 mg/dl (74-100)
[2023-11-15 00:36] LABS: Anion Gap 15.2 mEq/L (5-15); Blood Urea Nitrogen 5 mg/dl (9-20); Creatinine Clearance Estimated 138 mL/min (50-200); Estimated Glomerular Filt Rate 127 ml/min (>60); GFR (African American) 154 ML/MIN (>60); Potassium 3.2 mmoL/L (3.5-5.1); Sodium 129 mmol/L (136-145)
[2023-11-15 00:53] LABS: Magnesium 2.1 mg/dl (1.6-2.3)
[2023-11-15 00:54] LABS: Phosphorous 1.4 mg/dl (2.5-4.5)
[2023-11-15 04:38] LABS: Basophils % 0.2 % (0.1-2.0); Eosinophils % 0.3 % (0.1-12.0); Hemoglobin 15.2 g/dL (14.1-18.0); Lymphocytes # 0.5 K/mm3 (0.7-4.5); Lymphocytes % 8.3 % (10-50); Mean Corpuscular HGB Conc 36.3 g/dL (31.8-35.4); Mean Corpuscular Hemoglobin 32.4 pg (27.0-31.2); Mean Corpuscular Volume 89.3 fl (80-94); Mean Platelet Volume 8.7 fl (7.4-10.4); Monocytes # 0.3 K/mm3 (0.1-1.0); Monocytes % 5.2 % (1.7-9.3); Neutrophils # 5.1 K/mm3 (1.8-7.8); Platelet Count 111 K/mm3 (142-424); Red Cell Distribution Width 13.4 % (11.5-17.5); White Blood Count 5.9 K/mm3 (4.8-10.8)
[2023-11-15 04:40] LABS: Chloride 102 mmol/L (98-107)
[2023-11-15 04:41] LABS: Potassium 3.2 mmoL/L (3.5-5.1); Sodium 132 mmol/L (136-145)
[2023-11-15 04:44] LABS: Anion Gap 22.2 mEq/L (5-15); Blood Urea Nitrogen 5 mg/dl (9-20); Calcium 7.4 mg/dl (8.4-10.2); Carbon Dioxide 11 mmol/L (22.0-30.0); Creatinine Clearance Estimated 161 mL/min (50-200); Estimated Glomerular Filt Rate 152 ml/min (>60); GFR (African American) 183 ML/MIN (>60); Glucose 154 mg/dl (74-100)
[2023-11-15 04:47] LABS: Acetone, Serum (Rapid) Small (None Detect)
[2023-11-15 04:49] LABS: MANUAL DIFFERENTIAL MANUAL DIFFERENTIAL (MANUAL DIFF)
[2023-11-15 04:57] LABS: Lymphocytes % 9 % (10-50); Monocytes % 6 % (2-9); Neutrophils % 82 % (42-76); Platelet Estimate Slight Decrease; RBC Morphology Normal; Total Cells Counted 100
--- NOTE | 2023-11-15 05:25 | PC.NURSE ---
Notified Rowdy Mcmahon pt gap had went up from 15 to 22. [employer] states he will hold insulin gtt at this time. Start a diabetic diet and change fluids to NS at this time.
[2023-11-15] MEDS: 0.9% NaCl w/40mEq KCL 1,000 ML 100 ML IV (06:05)
[2023-11-15] MEDS: LEVOTHYROXINE 100MCG (0.1MG) TAB 200 MCG PO (06:18)
[2023-11-15] MEDS: humaLOG 100 UNITS/ML 3ML VIAL (SSI) SQ (06:18)
--- NOTE | 2023-11-15 06:46 | PC.NURSE ---
Insulin and d5 stopped at 0530.
--- NOTE | 2023-11-15 06:47 | PC.NURSE ---
Pt is a/o x4. Pt was able to ambulate to BR this am with standby assist. Insulin gtt stopped at 0530. Morning FS 156, received 2 u Humalog SQ. VSS. Seizure pads in place for safety.
[2023-11-15 07:00] LABS: POC Glucose,Bedside 145 (70-110)
[2023-11-15 07:00] LABS: POC Glucose,Bedside 132 (70-110)
[2023-11-15 07:00] LABS: POC Glucose,Bedside 156 (70-110)
[2023-11-15 07:00] LABS: POC Glucose,Bedside 136 (70-110)
[2023-11-15 07:00] LABS: POC Glucose,Bedside 147 (70-110)
[2023-11-15 07:00] LABS: POC Glucose,Bedside 145 (70-110)
[2023-11-15 07:00] LABS: POC Glucose,Bedside 135 (70-110)
[2023-11-15] MEDS: THIAMINE 100MG TABLET 100 MG PO (08:28)
[2023-11-15] MEDS: FOLIC ACID 1MG TABLET 1 MG PO (08:28)
[2023-11-15 10:04] LABS: Chloride 101 mmol/L (98-107); Potassium 3.7 mmoL/L (3.5-5.1); Sodium 128 mmol/L (136-145)
[2023-11-15 10:07] LABS: Blood Urea Nitrogen 7 mg/dl (9-20); Creatinine Clearance Estimated 137 mL/min (50-200); Estimated Glomerular Filt Rate 127 ml/min (>60); GFR (African American) 154 ML/MIN (>60)
[2023-11-15 10:08] LABS: Anion Gap 24.7 mEq/L (5-15); Calcium 7.3 mg/dl (8.4-10.2); Glucose 252 mg/dl (74-100)
[2023-11-15 10:12] LABS: Carbon Dioxide 6 mmol/L (22.0-30.0)
[2023-11-15] MEDS: LACTATED RINGERS 1000ML 1,000 ML 999 ML IV ×2 (10:40→11:56)
[2023-11-15] MEDS: CALCIUM CARBONATE 500MG CHEWTAB 500 MG PO (11:24)
[2023-11-15 11:33] LABS: POC Glucose,Bedside 213 (70-110)
[2023-11-15] MEDS: POTASSIUM CHLORIDE 20MEQ TAB 40 MEQ PO (11:55)
[2023-11-15 12:09] LABS: Chloride 103 mmol/L (98-107); Sodium 129 mmol/L (136-145)
[2023-11-15 12:12] LABS: Anion Gap 23.3 mEq/L (5-15); Blood Urea Nitrogen 6 mg/dl (9-20); Creatinine Clearance Estimated 160 mL/min (50-200); Estimated Glomerular Filt Rate 152 ml/min (>60); GFR (African American) 183 ML/MIN (>60); Potassium 3.3 mmoL/L (3.5-5.1)
[2023-11-15 12:13] LABS: Calcium 7.2 mg/dl (8.4-10.2); Glucose 196 mg/dl (74-100); Glucose,Random 196 mg/dL (74-100)
[2023-11-15 12:25] LABS: Acetone, Serum (Rapid) Moderate (None Detect); Carbon Dioxide 6 mmol/L (22.0-30.0)
[2023-11-15] MEDS: Dextrose 5 % and 0.9 % NaCl 1,000 ML 200 ML IV (13:09)
[2023-11-15] MEDS: INSULIN REGULAR, HUMAN 100 UNIT in 0.9 % SODIUM CHLORIDE 100 ML 6.76999999999999957 UNIT IV (13:09)
[2023-11-15 13:14] LABS: Glucose,Random 185 mg/dL (74-100)
[2023-11-15 13:52] LABS: POC Glucose,Bedside 166 (70-110)
[2023-11-15 14:25] LABS: Glucose,Random 182 mg/dL (74-100)
[2023-11-15 14:57] LABS: POC Glucose,Bedside 168 (70-110)
[2023-11-15 15:43] LABS: Chloride 105 mmol/L (98-107); Potassium 3.2 mmoL/L (3.5-5.1); Sodium 130 mmol/L (136-145)
[2023-11-15 15:44] LABS: POC Glucose,Bedside 145 (70-110)
[2023-11-15 15:46] LABS: Anion Gap 17.2 mEq/L (5-15); Blood Urea Nitrogen 5 mg/dl (9-20); Calcium 7.4 mg/dl (8.4-10.2); Carbon Dioxide 11 mmol/L (22.0-30.0); Creatinine Clearance Estimated 192 mL/min (50-200); Estimated Glomerular Filt Rate 187 ml/min (>60); GFR (African American) 226 ML/MIN (>60); Glucose 157 mg/dl (74-100); Glucose,Random 157 mg/dL (74-100)
--- NOTE | 2023-11-15 16:15 | PC.NURSE ---
VS stable and patient remained on room air. Insulin drip restarted and fsbs maintaining. Patient maintained npo status. Tums given for acid reflux.
[2023-11-15] MEDS: MULTIVITAMIN TABLET 1 EACH PO (16:31)
[2023-11-15 16:39] LABS: POC Glucose,Bedside 117 (70-110)
--- NOTE | 2023-11-15 16:58 | P.PN_ITS ---
Subjective *Date: 11/15/23 *Time: 16:58 Interval history: patient was seen and evaluated at the bedside. No reported acute events overnight, denies chest pain, shortness of breath, nausea, vomiting, abdominal pain. Exam Data for Last 24 hours Vital signs and Labs for Last 24 Hours: Temp Pulse Resp BP Pulse Ox O2 Del Method 98.5 F 91 H 18 123/68 94 L Room Air 11/15/23 11:30 11/15/23 16:00 11/15/23 16:00 11/15/23 16:00 11/15/23 16:00 11/15/23 16:00 Laboratory Results - last 24 hr 11/14/23 16:35: Carbon Dioxide 14 L, Anion Gap 19.2 H, BUN 8 L, Creatinine 0.60 L, Estimated Creat Clear 161, Estimated GFR 152, Est GFR ( Amer) 183, Glucose 146 H, Calcium 7.0 L 11/14/23 18:33: POC Glucose 139 H 11/14/23 20:22: POC Glucose 147 H 11/14/23 20:25: Sodium 130 L, Potassium 3.0 L, Chloride 104, Carbon Dioxide 13 L , Anion Gap 16.0 H, BUN 7 L, Creatinine 0.50 L, Estimated Creat Clear 193, Estimated GFR 187, Est GFR ( Amer) 226 D, Glucose 148 H, Calcium 6.7 L 11/14/23 21:27: POC Glucose 132 H 11/14/23 22:22: POC Glucose 135 H 11/14/23 23:43: POC Glucose 145 H 11/15/23 00:10: Phosphorus 1.4 L, Magnesium 2.1 11/15/23 00:15: Sodium 129 L, Potassium 3.2 L, Chloride 102, Carbon Dioxide 15 L , Anion Gap 15.2 H, BUN 5 L D, Creatinine 0.70 D, Estimated Creat Clear 138, Estimated GFR 127, Est GFR ( Amer) 154 D, Glucose 147 H, Calcium 7.0 L 11/15/23 02:08: POC Glucose 136 H 11/15/23 04:27: POC Glucose 145 H 11/15/23 04:30: WBC 5.9 D, RBC 4.70, Hgb 15.2, Hct 42.0, MCV 89.3, MCH 32.4 H, MCHC 36.3 H, RDW 13.4, Plt Count 111 L D, MPV 8.7, Neut % (Auto) 86.0 H, Lymph % (Auto) 8.3 L, [place] % (Auto) 5.2, Eos % (Auto) 0.3, Baso % (Auto) 0.2, Neut # (Auto) 5.1, Lymph # (Auto) 0.5 L, [place] # (Auto) 0.3, Eos # (Auto) 0.0, Baso # (Auto) 0.0, Total Counted 100, Neutrophils % (Manual) 82 H, Band Neutrophils % 3.0, Lymphocytes % (Manual) 9 L, Monocytes % (Manual) 6, Platelet Estimate Slight decrease, RBC Morphology Normal, Sodium 132 L, Potassium 3.2 L, Chloride 102, Carbon Dioxide 11 L, Anion Gap 22.2 H, BUN 5 L, Creatinine 0.60 L, Estimated Creat Clear 161, Estimated GFR 152, Est GFR ( Amer) 183, Glucose 154 H, Calcium 7.4 L, Acetone Level Small 11/15/23 06:12: POC Glucose 156 H 11/15/23 09:38: Sodium 128 L, Potassium 3.7, Chloride 101, Carbon Dioxide 6 L* D , Anion Gap 24.7 H, BUN 7 L D, Creatinine 0.70, Estimated Creat Clear 137, Estimated GFR 127, Est GFR ( Amer) 154, Glucose 252 H D, Calcium 7.3 L 11/15/23 11:25: POC Glucose 213 H 11/15/23 11:45: Sodium 129 L, Potassium 3.3 L, Chloride 103, Carbon Dioxide 6 L* , Anion Gap 23.3 H, BUN 6 L, Creatinine 0.60 L, Estimated Creat Clear 160, Estimated GFR 152, Est GFR ( Amer) 183, Glucose 196 H D, Random Glucose 196 H, Calcium 7.2 L, Acetone Level Moderate 11/15/23 13:08: POC Glucose 166 H 11/15/23 13:57: Random Glucose 182 H 11/15/23 14:34: POC Glucose 168 H 11/15/23 15:25: Sodium 130 L, Potassium 3.2 L, Chloride 105, Carbon Dioxide 11 L , Anion Gap 17.2 H, BUN 5 L, Creatinine 0.50 L, Estimated Creat Clear 192, Estimated GFR 187, Est GFR ( Amer) 226 D, Glucose 157 H, Random Glucose 157 H, Calcium 7.4 L 11/15/23 15:37: POC Glucose 145 H 11/15/23 16:30: POC Glucose 117 H 11/15/23 : Random Glucose 185 H I & O for Last 24 hours: Intake & Output 11/12/23 11/13/23 11/14/23 11/15/23 23:59 23:59 23:59 23:59 Intake Total 1777.481 / 2521.481 2665.998 / 2665.998 2187 / 2187 Output Total 700 / 700 2575 / 2575 3450 / 3450 Balance 1077.481 / 1821.481 90.998 / 90.998 -1263 / -1263 Weight 66.905 kg 67.54 kg 66.996 kg Constitutional Constitutional: no acute distress *Routine HEENT Exam Head: Present normocephalic Eye: Present EOMI and PERRL ENT: Present mucous membranes moist *Routine Neck Exam Neck: Present supple; Absent lymphadenopathy *Routine Respiratory Exam Respiratory: Present CTA bilaterally *Routine Cardiovascular Exam Cardiovascular: Present RRR *Routine Abdominal Exam Abdominal: Present soft and normoactive bowel sounds; Absent tenderness *Routine Extremities Exam Extremities: Absent cyanosis, clubbing or edema *Routine Skin Exam Skin: Present warm; Absent rash *Routine Neurological Exam Neurological: Present alert and oriented X3 Assessment and Plan *Assessment and plan (1) DKA (diabetic ketoacidosis): Status: Acute Category: Medical Code(s): E11.10 - Type 2 diabetes mellitus with ketoacidosis without coma (2) Influenza: Status: Acute Category: Medical Code(s): J11.1 - Influenza due to unidentified influenza virus with other respiratory manifestations (3) Dehydration: Status: Acute Category: Medical Code(s): E86.0 - Dehydration Plan Patient is a 38-year-old male with past medical history of diabetes mellitus type 2, alcohol abuse who presented to hospital due to feeling sick. According to patient she had flu for the past 1 week since then he has been getting worse, he has not been able to hold down the foods, has been feeling generalized abdominal pain. He also has associated nausea as well as vomiting. Denies diarrhea. He had dry cough. He mentions his is also sick at home. He also has been drinking regularly and drinks 6 to 8 ounces of beers every day. Assessment Diabetic ketoacidosis Dehydration Upper respiratory tract infection, influenza type A History of hypothyroidism Plan Aggressive IV fluid hydration - continue IV insulin - continue BMP every 4 hours, POC glucose checks every hour CIWA assessment with as needed ativan, FA, MVS, B1 Resume home levothyroxine Monitor and replace electrolytes DVT prophylaxis-heparin DC tomorrow, continue current DKA managment, aggressive IV fluids, continue IV insulin, bridge with long acting when gap is closed
[2023-11-15] MEDS: KCl 10mEq/100ml 100 ML 100 MEQ IV (17:34)
[2023-11-15] MEDS: POTASSIUM CHLORIDE 20MEQ TAB 20 MEQ PO (17:34)
[2023-11-15 17:44] LABS: POC Glucose,Bedside 122 (70-110)
[2023-11-15 18:50] LABS: POC Glucose,Bedside 129 (70-110)
[2023-11-15 19:41] LABS: POC Glucose,Bedside 124 (70-110)
[2023-11-15 19:57] LABS: Chloride 103 mmol/L (98-107); Sodium 130 mmol/L (136-145)
[2023-11-15 19:58] LABS: Potassium 3.8 mmoL/L (3.5-5.1)
[2023-11-15 20:00] LABS: Blood Urea Nitrogen 4 mg/dl (9-20); Creatinine Clearance Estimated 192 mL/min (50-200); Estimated Glomerular Filt Rate 187 ml/min (>60); GFR (African American) 226 ML/MIN (>60)
[2023-11-15 20:01] LABS: Anion Gap 21.8 mEq/L (5-15); Calcium 7.6 mg/dl (8.4-10.2); Glucose 130 mg/dl (74-100)
[2023-11-15 20:04] LABS: Carbon Dioxide 9 mmol/L (22.0-30.0)
[2023-11-15 20:39] LABS: POC Glucose,Bedside 119 (70-110)
[2023-11-15] MEDS: Dextrose 5 % and 0.9 % NaCl 1,000 ML 75 ML IV (20:46)
[2023-11-15 21:36] LABS: POC Glucose,Bedside 132 (70-110)
[2023-11-15 22:23] LABS: POC Glucose,Bedside 122 (70-110)
[2023-11-15 23:13] LABS: Chloride 104 mmol/L (98-107); Potassium 3.7 mmoL/L (3.5-5.1); Sodium 130 mmol/L (136-145)
[2023-11-15 23:15] LABS: Acetone, Serum (Rapid) Moderate (None Detect)
[2023-11-15 23:16] LABS: Anion Gap 16.7 mEq/L (5-15); Blood Urea Nitrogen 4 mg/dl (9-20); Calcium 7.5 mg/dl (8.4-10.2); Carbon Dioxide 13 mmol/L (22.0-30.0); Creatinine Clearance Estimated 192 mL/min (50-200); Estimated Glomerular Filt Rate 187 ml/min (>60); GFR (African American) 226 ML/MIN (>60); Glucose 132 mg/dl (74-100)
[2023-11-15 23:21] LABS: POC Glucose,Bedside 128 (70-110)
[2023-11-16] VITALS (15 sets, daily range): BP systolic 109–124; BP diastolic 62–79; PULSE 78–94; RESP 12–20; TEMP 36.4–37; O2SAT 63–98; BMI 20.9
[2023-11-16 00:15] LABS: POC Glucose,Bedside 121 (70-110)
[2023-11-16 00:52] LABS: Glucose,Random 132 mg/dL (74-100)
[2023-11-16 01:12] LABS: POC Glucose,Bedside 126 (70-110)
[2023-11-16 02:10] LABS: POC Glucose,Bedside 135 (70-110)
[2023-11-16 03:39] LABS: POC Glucose,Bedside 126 (70-110)
[2023-11-16 03:45] LABS: Anion Gap 15.3 mEq/L (5-15); Blood Urea Nitrogen 4 mg/dl (9-20); Calcium 7.5 mg/dl (8.4-10.2); Carbon Dioxide 14 mmol/L (22.0-30.0); Chloride 102 mmol/L (98-107); Creatinine Clearance Estimated 192 mL/min (50-200); Estimated Glomerular Filt Rate 187 ml/min (>60); GFR (African American) 226 ML/MIN (>60); Glucose 134 mg/dl (74-100); Potassium 3.3 mmoL/L (3.5-5.1); Sodium 128 mmol/L (136-145)
[2023-11-16] MEDS: D5W/0.9% NaCl w/40mEq KCL 1,000 ML 150 ML IV ×3 (04:09→17:14)
[2023-11-16 04:21] LABS: POC Glucose,Bedside 135 (70-110)
--- NOTE | 2023-11-16 05:26 | PC.NURSE ---
Shift Summary: Pt AOx4, standby assist, VSS on RA. Insulin gtt decreased to 1 u/hr, unable to turn off d/t anion gap and acetone levels. Per protocol, IVF changed d/t hypokalemia, pt tolerating. No acute events or issues overnight. Fall precautions implemented, call light within reach.
[2023-11-16 06:16] LABS: POC Glucose,Bedside 143 (70-110)
[2023-11-16 06:16] LABS: POC Glucose,Bedside 151 (70-110)
[2023-11-16] MEDS: LEVOTHYROXINE 100MCG (0.1MG) TAB 200 MCG PO (06:58)
[2023-11-16 07:07] LABS: POC Glucose,Bedside 139 (70-110)
[2023-11-16 07:43] LABS: Basophils % 0.2 % (0.1-2.0); Eosinophils % 0.1 % (0.1-12.0); Hematocrit 41.3 % (42.0-52.0); Lymphocytes # 1.3 K/mm3 (0.7-4.5); Mean Corpuscular HGB Conc 36.2 g/dL (31.8-35.4); Mean Corpuscular Hemoglobin 31.9 pg (27.0-31.2); Mean Corpuscular Volume 88.1 fl (80-94); Mean Platelet Volume 8.2 fl (7.4-10.4); Monocytes # 0.4 K/mm3 (0.1-1.0); Monocytes % 4.3 % (1.7-9.3); Neutrophils # 7.1 K/mm3 (1.8-7.8); Neutrophils % 80.4 % (37.0-80.0); Platelet Count 124 K/mm3 (142-424); Red Blood Count 4.69 M/mm3 (4.60-6.20); Red Cell Distribution Width 13.3 % (11.5-17.5); White Blood Count 8.9 K/mm3 (4.8-10.8)
[2023-11-16 07:45] LABS: Chloride 103 mmol/L (98-107)
[2023-11-16 07:46] LABS: Potassium 3.6 mmoL/L (3.5-5.1); Sodium 130 mmol/L (136-145)
[2023-11-16 07:48] LABS: Blood Urea Nitrogen 5 mg/dl (9-20); Creatinine Clearance Estimated 194 mL/min (50-200); Estimated Glomerular Filt Rate 187 ml/min (>60); GFR (African American) 226 ML/MIN (>60)
[2023-11-16 07:49] LABS: Anion Gap 17.6 mEq/L (5-15); Calcium 7.2 mg/dl (8.4-10.2); Carbon Dioxide 13 mmol/L (22.0-30.0); Glucose 166 mg/dl (74-100)
[2023-11-16] MEDS: FOLIC ACID 1MG TABLET 1 MG PO (09:01)
[2023-11-16 09:12] LABS: POC Glucose,Bedside 163 (70-110)
[2023-11-16] MEDS: LACTATED RINGERS 1000ML 1,000 ML 999 ML IV ×2 (10:56→12:36)
[2023-11-16 11:46] LABS: POC Glucose,Bedside 164 (70-110)
[2023-11-16 11:46] LABS: POC Glucose,Bedside 160 (70-110)
[2023-11-16 11:49] LABS: Acetone, Serum (Rapid) Moderate (None Detect)
[2023-11-16] MEDS: HEPARIN SODIUM 5,000 UNIT/ML VIAL 5000 UNIT SQ (12:51)
[2023-11-16 13:48] LABS: POC Glucose,Bedside 187 (70-110)
[2023-11-16 14:34] LABS: Chloride 101 mmol/L (98-107); Potassium 3.8 mmoL/L (3.5-5.1); Sodium 129 mmol/L (136-145)
[2023-11-16 14:37] LABS: Anion Gap 17.8 mEq/L (5-15); Blood Urea Nitrogen 3 mg/dl (9-20); Calcium 7.3 mg/dl (8.4-10.2); Carbon Dioxide 14 mmol/L (22.0-30.0); Creatinine Clearance Estimated 194 mL/min (50-200); Estimated Glomerular Filt Rate 187 ml/min (>60); GFR (African American) 226 ML/MIN (>60); Glucose 174 mg/dl (74-100)
[2023-11-16] MEDS: INSULIN GLARGINE 100 UNITS/ML 10ML VIAL 10 UNIT SQ (15:24)
[2023-11-16] MEDS: INSULIN REGULAR, HUMAN 100 UNIT in 0.9 % SODIUM CHLORIDE 100 ML IV (15:26)
[2023-11-16 15:36] LABS: POC Glucose,Bedside 186 (70-110)
[2023-11-16] MEDS: MULTIVITAMIN TABLET 1 EACH PO (16:32)
--- NOTE | 2023-11-16 16:43 | P.PN_ITS ---
Subjective *Date: 11/16/23 *Time: 16:43 Interval history: patient was seen and evaluated at the bedside. No reported acute events overnight, denies chest pain, shortness of breath, nausea, vomiting, abdominal pain. Exam Data for Last 24 hours Vital signs and Labs for Last 24 Hours: Temp Pulse Resp BP Pulse Ox O2 Del Method 98.6 F 90 18 124/75 97 Room Air 11/16/23 15:21 11/16/23 16:00 11/16/23 14:00 11/16/23 14:00 11/16/23 14:00 11/16/23 14:00 Laboratory Results - last 24 hr 11/15/23 17:34: POC Glucose 122 H 11/15/23 18:24: POC Glucose 129 H 11/15/23 19:35: Sodium 130 L, Potassium 3.8, Chloride 103, Carbon Dioxide 9 L* D , Anion Gap 21.8 H, BUN 4 L, Creatinine 0.50 L, Estimated Creat Clear 192, E stimated GFR 187, Est GFR ( Amer) 226, Glucose 130 H, POC Glucose 124 H, Calcium 7.6 L 11/15/23 20:30: POC Glucose 119 H 11/15/23 21:29: POC Glucose 132 H 11/15/23 22:16: POC Glucose 122 H 11/15/23 23:00: Sodium 130 L, Potassium 3.7, Chloride 104, Carbon Dioxide 13 L, Anion Gap 16.7 H, BUN 4 L, Creatinine 0.50 L, Estimated Creat Clear 192, Estimated GFR 187, Est GFR ( Amer) 226, Glucose 132 H, Random Glucose Cancelled, Calcium 7.5 L, Acetone Level Moderate 11/15/23 23:14: POC Glucose 128 H 11/16/23 00:05: POC Glucose 121 H 11/16/23 00:35: Random Glucose 132 H 11/16/23 01:05: POC Glucose 126 H 11/16/23 02:01: POC Glucose 135 H 11/16/23 03:30: Sodium 128 L, Potassium 3.3 L, Chloride 102, Carbon Dioxide 14 L , Anion Gap 15.3 H, BUN 4 L, Creatinine 0.50 L, Estimated Creat Clear 192, Estimated GFR 187, Est GFR ( Amer) 226, Glucose 134 H, POC Glucose 126 H, Calcium 7.5 L 11/16/23 04:11: POC Glucose 135 H 11/16/23 05:04: POC Glucose 143 H 11/16/23 06:05: POC Glucose 151 H 11/16/23 07:00: POC Glucose 139 H 11/16/23 07:13: WBC 8.9 D, RBC 4.69, Hgb 15.0, Hct 41.3 L, MCV 88.1, MCH 31.9 H , MCHC 36.2 H, RDW 13.3, Plt Count 124 L, MPV 8.2, Neut % (Auto) 80.4 H, Lymph % (Auto) 15.0, [place] % (Auto) 4.3, Eos % (Auto) 0.1, Baso % (Auto) 0.2, Neut # (Auto) 7.1, Lymph # (Auto) 1.3, Carbon # (Auto) 0.4, Eos # (Auto) 0.0, Baso # (Auto) 0.0, Sodium 130 L, Potassium 3.6, Chloride 103, Carbon Dioxide 13 L, Anion Gap 17.6 H, BUN 5 L, Creatinine 0.50 L, Estimated Creat Clear 194, Estimated GFR 187, Est GFR ( Amer) 226, Glucose 166 H D, Calcium 7.2 L 11/16/23 09:03: POC Glucose 163 H 11/16/23 10:36: POC Glucose 160 H 11/16/23 11:28: Acetone Level Moderate 11/16/23 11:34: POC Glucose 164 H 11/16/23 12:52: POC Glucose 187 H 11/16/23 14:02: Sodium 129 L, Potassium 3.8, Chloride 101, Carbon Dioxide 14 L, Anion Gap 17.8 H, BUN 3 L D, Creatinine 0.50 L, Estimated Creat Clear 194, Estimated GFR 187, Est GFR ( Amer) 226, Glucose 174 H, Calcium 7.3 L 11/16/23 15:25: POC Glucose 186 H I & O for Last 24 hours: Intake & Output 11/13/23 11/14/23 11/15/23 11/16/23 23:59 23:59 23:59 23:59 Intake Total 9777.481 / 6741.481 2665.998 / 2665.998 3216.565 / 6211.565 2765.800 / 2765.800 Output Total 700 / 700 2575 / 2575 4350 / 5350 3200 / 3200 Balance 1077.481 / 1821.481 90.998 / 90.998 -1133.435 / -1678.435 -434.200 / - 434.200 Weight 66.905 kg 67.54 kg 66.996 kg 67.8 kg Constitutional Constitutional: no acute distress *Routine HEENT Exam Head: Present normocephalic Eye: Present EOMI and PERRL ENT: Present mucous membranes moist *Routine Neck Exam Neck: Present supple; Absent lymphadenopathy *Routine Respiratory Exam Respiratory: Present CTA bilaterally *Routine Cardiovascular Exam Cardiovascular: Present RRR *Routine Abdominal Exam Abdominal: Present soft and normoactive bowel sounds; Absent tenderness *Routine Extremities Exam Extremities: Absent cyanosis, clubbing or edema *Routine Skin Exam Skin: Present warm; Absent rash *Routine Neurological Exam Neurological: Present alert and oriented X3 Assessment and Plan *Assessment and plan (1) DKA (diabetic ketoacidosis): Status: Acute Category: Medical Code(s): E11.10 - Type 2 diabetes mellitus with ketoacidosis without coma (2) Influenza: Status: Acute Category: Medical Code(s): J11.1 - Influenza due to unidentified influenza virus with other respiratory manifestations (3) Dehydration: Status: Acute Category: Medical Code(s): E86.0 - Dehydration Plan Patient is a 38-year-old male with past medical history of diabetes mellitus type 2, alcohol abuse who presented to hospital due to feeling sick. According to patient she had flu for the past 1 week since then he has been getting worse, he has not been able to hold down the foods, has been feeling generalized abdominal pain. He also has associated nausea as well as vomiting. Denies diarrhea. He had dry cough. He mentions his is also sick at home. He also has been drinking regularly and drinks 6 to 8 ounces of beers every day. Assessment Diabetic ketoacidosis Dehydration Upper respiratory tract infection, influenza type A History of hypothyroidism Plan Aggressive IV fluid hydration - continue IV insulin - continue BMP every 4 hours, POC glucose checks every hour CIWA assessment with as needed ativan, FA, MVS, B1 Resume home levothyroxine Monitor and replace electrolytes DVT prophylaxis-heparin DC tomorrow, continue current DKA managment, aggressive IV fluids, continue IV insulin, bridge with long acting when gap is closed
--- NOTE | 2023-11-16 17:56 | PC.NURSE ---
1630 pt IV insulin increased to 2 units per hour per Dr Echeverria verbal order
[2023-11-16 18:19] LABS: POC Glucose,Bedside 166 (70-110)
[2023-11-16 18:19] LABS: POC Glucose,Bedside 166 (70-110)
[2023-11-16 18:19] LABS: POC Glucose,Bedside 166 (70-110)
[2023-11-16 18:33] LABS: Anion Gap 11.2 mEq/L (5-15); Blood Urea Nitrogen 3 mg/dl (9-20); Calcium 7.2 mg/dl (8.4-10.2); Carbon Dioxide 20 mmol/L (22.0-30.0); Chloride 101 mmol/L (98-107); Creatinine Clearance Estimated 194 mL/min (50-200); Estimated Glomerular Filt Rate 187 ml/min (>60); GFR (African American) 226 ML/MIN (>60); Glucose 162 mg/dl (74-100); Potassium 4.2 mmoL/L (3.5-5.1); Sodium 128 mmol/L (136-145)
[2023-11-16 19:15] LABS: POC Glucose,Bedside 140 (70-110)
[2023-11-16 20:20] LABS: POC Glucose,Bedside 145 (70-110)
[2023-11-16 22:58] LABS: Anion Gap 12.7 mEq/L (5-15); Blood Urea Nitrogen 3 mg/dl (9-20); Calcium 7.7 mg/dl (8.4-10.2); Carbon Dioxide 18 mmol/L (22.0-30.0); Chloride 99 mmol/L (98-107); Creatinine Clearance Estimated 242 mL/min (50-200); Estimated Glomerular Filt Rate 242 ml/min (>60); GFR (African American) 293 ML/MIN (>60); Glucose 120 mg/dl (74-100); Potassium 3.7 mmoL/L (3.5-5.1); Sodium 126 mmol/L (136-145)
[2023-11-17] VITALS (7 sets, daily range): BP systolic 90–112; BP diastolic 42–70; PULSE 84–92; RESP 12–16; TEMP 37.1–38.2; O2SAT 91–98; BMI 19.8
[2023-11-17 00:14] LABS: POC Glucose,Bedside 115 (70-110)
[2023-11-17 00:14] LABS: POC Glucose,Bedside 123 (70-110)
[2023-11-17 00:14] LABS: POC Glucose,Bedside 103 (70-110)
[2023-11-17 00:14] LABS: POC Glucose,Bedside 106 (70-110)
[2023-11-17] MEDS: BENZONATATE 100MG CAPSULE 100 MG PO ×2 (00:26→08:15)
[2023-11-17] MEDS: D5W/0.9% NaCl w/40mEq KCL 1,000 ML 75 ML IV (00:57)
[2023-11-17 01:10] LABS: POC Glucose,Bedside 112 (70-110)
[2023-11-17 03:10] LABS: POC Glucose,Bedside 90 (70-110)
[2023-11-17 03:10] LABS: POC Glucose,Bedside 101 (70-110)
[2023-11-17 03:51] LABS: Blood Urea Nitrogen 3 mg/dl (9-20); Carbon Dioxide 20 mmol/L (22.0-30.0); Chloride 99 mmol/L (98-107); Creatinine Clearance Estimated 242 mL/min (50-200); Estimated Glomerular Filt Rate 242 ml/min (>60); GFR (African American) 293 ML/MIN (>60); Glucose 107 mg/dl (74-100); Potassium 3.5 mmoL/L (3.5-5.1)
[2023-11-17 03:52] LABS: Anion Gap 12.5 mEq/L (5-15); Calcium 7.4 mg/dl (8.4-10.2); Sodium 128 mmol/L (136-145)
[2023-11-17] MEDS: LEVOTHYROXINE 100MCG (0.1MG) TAB 200 MCG PO (06:14)
[2023-11-17 06:26] LABS: POC Glucose,Bedside 125 (70-110)
[2023-11-17 06:26] LABS: POC Glucose,Bedside 106 (70-110)
[2023-11-17 06:26] LABS: POC Glucose,Bedside 100 (70-110)
[2023-11-17 07:07] LABS: POC Glucose,Bedside 114 (70-110)
[2023-11-17 07:38] LABS: Anion Gap 10.5 mEq/L (5-15); Blood Urea Nitrogen 3 mg/dl (9-20); Calcium 7.7 mg/dl (8.4-10.2); Carbon Dioxide 22 mmol/L (22.0-30.0); Chloride 101 mmol/L (98-107); Creatinine Clearance Estimated 230 mL/min (50-200); Estimated Glomerular Filt Rate 242 ml/min (>60); GFR (African American) 293 ML/MIN (>60); Glucose 121 mg/dl (74-100); Potassium 3.5 mmoL/L (3.5-5.1); Sodium 130 mmol/L (136-145)
[2023-11-17] MEDS: FOLIC ACID 1MG TABLET 1 MG PO (08:15)
[2023-11-17 09:12] LABS: POC Glucose,Bedside 110 (70-110)
[2023-11-17 09:12] LABS: POC Glucose,Bedside 110 (70-110)
--- NOTE | 2023-11-17 10:08 | EXP.EVENT.NO ---
patient mentions he feels better, he has no complains N/V/D, fever, holding down food and wants to be discharged home, his Anion gap has closed. I counseled him if he starts getting worse come back to emergency dept and call PCP office and also make an appointment. Pharmacy is going to educate him on use of insulin
--- NOTE | 2023-11-17 10:47 | P.DS_ITS ---
General Admission date:: 11/13/23 Discharge date: 11/17/23 HPI HPI HPI: Patient is a 38-year-old male with past medical history of diabetes mellitus type 2, alcohol abuse who presented to hospital due to feeling sick. According to patient she had flu for the past 1 week since then he has been getting worse, he has not been able to hold down the foods, has been feeling generalized abdominal pain. He also has associated nausea as well as vomiting. Denies diarrhea. He had dry cough. He mentions his is also sick at home. He also has been drinking regularly and drinks 6 to 8 ounces of beers every day. Hospital Course Hospital Course Hospital Course: Patient was seen and evaluated at the bedside on the day of discharge. Patient is stable for discharge. Patient wishes to be discharged. All patient questions were answered and patient was given time to ask questions. Patient was discharged in stable condition. Patient understands that she can return to ER in case of any sudden changes in health. Total time spent on DC - 38 mins patient mentions he feels better, he has no complains N/V/D, fever, holding down food and wants to be discharged home, his Anion gap has closed. I counseled him if he starts getting worse come back to emergency dept and call PCP office and also make an appointment. Pharmacy is going to educate him on use of insulin Patient is a 38-year-old male with past medical history of diabetes mellitus type 2, alcohol abuse who presented to hospital due to feeling sick. According to patient she had flu for the past 1 week since then he has been getting worse, he has not been able to hold down the foods, has been feeling generalized ab dominal pain. He also has associated nausea as well as vomiting. Denies diarrhea. He had dry cough. He mentions his is also sick at home. He also has been drinking regularly and drinks 6 to 8 ounces of beers every day. Assessment Diabetic ketoacidosis - resolved, dc on long acting insulin 10units qhs Dehydration - enouraged oral hydration Upper respiratory tract infection, influenza type A History of hypothyroidism Exam Data for Last 24 hours Vital signs and Labs for Last 24 Hours: Temp Pulse Resp BP Pulse Ox O2 Del Method 100.7 F H 92 H 16 109/64 L 91 L Room Air 11/17/23 07:49 11/17/23 08:14 11/17/23 08:14 11/17/23 08:14 11/17/23 08:14 11/17/23 09:00 Laboratory Results - last 24 hr 11/16/23 10:36: POC Glucose 160 H 11/16/23 11:28: Acetone Level Moderate 11/16/23 11:34: POC Glucose 164 H 11/16/23 12:52: POC Glucose 187 H 11/16/23 14:02: Sodium 129 L, Potassium 3.8, Chloride 101, Carbon Dioxide 14 L, Anion Gap 17.8 H, BUN 3 L D, Creatinine 0.50 L, Estimated Creat Clear 194, Estimated GFR 187, Est GFR ( Amer) 226, Glucose 174 H, Calcium 7.3 L 11/16/23 15:25: POC Glucose 186 H 11/16/23 16:33: POC Glucose 166 H 11/16/23 17:00: POC Glucose 166 H 11/16/23 18:08: POC Glucose 166 H 11/16/23 18:12: Sodium 128 L, Potassium 4.2, Chloride 101, Carbon Dioxide 20 L, Anion Gap 11.2, BUN 3 L, Creatinine 0.50 L, Estimated Creat Clear 194, Estimated GFR 187, Est GFR ( Amer) 226, Glucose 162 H, Calcium 7.2 L 11/16/23 19:07: POC Glucose 140 H 11/16/23 20:00: POC Glucose 145 H 11/16/23 21:02: POC Glucose 123 H 11/16/23 22:18: POC Glucose 115 H 11/16/23 22:32: Sodium 126 L, Potassium 3.7, Chloride 99, Carbon Dioxide 18 L, Anion Gap 12.7, BUN 3 L, Creatinine 0.40 L, Estimated Creat Clear 242, Estimated GFR 242, Est GFR ( Amer) 293 D, Glucose 120 H D, Calcium 7.7 L 11/16/23 23:06: POC Glucose 103 11/17/23 00:07: POC Glucose 106 11/17/23 00:59: POC Glucose 112 H 11/17/23 02:01: POC Glucose 101 11/17/23 03:03: POC Glucose 90 11/17/23 03:30: Sodium 128 L, Potassium 3.5, Chloride 99, Carbon Dioxide 20 L, Anion Gap 12.5, BUN 3 L, Creatinine 0.40 L, Estimated Creat Clear 242, Estimated GFR 242, Est GFR ( Amer) 293, Glucose 107 H, Calcium 7.4 L 11/17/23 04:01: POC Glucose 100 11/17/23 05:02: POC Glucose 106 11/17/23 06:18: POC Glucose 125 H 11/17/23 07:00: POC Glucose 114 H 11/17/23 07:02: Sodium 130 L, Potassium 3.5, Chloride 101, Carbon Dioxide 22, Anion Gap 10.5, BUN 3 L, Creatinine 0.40 L, Estimated Creat Clear 230, Estimated GFR 242, Est GFR ( Amer) 293, Glucose 121 H, Calcium 7.7 L 11/17/23 08:16: POC Glucose 110 11/17/23 08:59: POC Glucose 110 I & O for Last 24 hours: Intake & Output 11/14/23 11/15/23 11/16/23 11/17/23 23:59 23:59 23:59 23:59 Intake Total 2665.998 / 2665.998 3216.565 / 3671.565 5821.800 / 6875.800 1612.7 / 1612.7 Output Total 2575 / 2575 4350 / 5350 5400 / 5400 1600 / 1600 Balance 90.998 / 90.998 -1133.435 / -1678.435 421.800 / 1475.800 12.7 / 12.7 Weight 67.54 kg 66.996 kg 67.8 kg 64.4 kg Constitutional Constitutional: no acute distress *Routine HEENT Exam Head: Present normocephalic Eye: Present EOMI and PERRL ENT: Present mucous membranes moist *Routine Neck Exam Neck: Present supple; Absent lymphadenopathy *Routine Respiratory Exam Respiratory: Present CTA bilaterally *Routine Cardiovascular Exam Cardiovascular: Present RRR *Routine Abdominal Exam Abdominal: Present soft and normoactive bowel sounds; Absent tenderness *Routine Extremities Exam Extremities: Absent cyanosis, clubbing or edema *Routine Skin Exam Skin: Present warm; Absent rash *Routine Neurological Exam Neurological: Present alert and oriented X3 Results Data Completed and Pending Labs on day of discharge: Labs from last 24 hours 11/17/23 11/17/23 11/17/23 08:59 08:16 07:02 Sodium 130 L Potassium 3.5 Chloride 101 Carbon Dioxide 22 Anion Gap 10.5 BUN 3 L Creatinine 0.40 L Estimated Creat Clear 230 Estimated GFR 242 Est GFR ( Amer) 293 Glucose 121 H POC Glucose 110 110 Calcium 7.7 L Acetone Level 11/17/23 11/17/23 11/17/23 07:00 06:18 05:02 Sodium Potassium Chloride Carbon Dioxide Anion Gap BUN Creatinine Estimated Creat Clear Estimated GFR Est GFR ( Amer) Glucose POC Glucose 114 H 125 H 106 Calcium Acetone Level 11/17/23 11/17/23 11/17/23 04:01 03:30 03:03 Sodium 128 L Potassium 3.5 Chloride 99 Carbon Dioxide 20 L Anion Gap 12.5 BUN 3 L Creatinine 0.40 L Estimated Creat Clear 242 Estimated GFR 242 Est GFR ( Amer) 293 Glucose 107 H POC Glucose 100 90 Calcium 7.4 L Acetone Level 11/17/23 11/17/23 11/17/23 02:01 00:59 00:07 Sodium Potassium Chloride Carbon Dioxide Anion Gap BUN Creatinine Estimated Creat Clear Estimated GFR Est GFR ( Amer) Glucose POC Glucose 101 112 H 106 Calcium Acetone Level 11/16/23 11/16/23 11/16/23 23:06 22:32 22:18 Sodium 126 L Potassium 3.7 Chloride 99 Carbon Dioxide 18 L Anion Gap 12.7 BUN 3 L Creatinine 0.40 L Estimated Creat Clear 242 Estimated GFR 242 Est GFR ( Amer) 293 D Glucose 120 H D POC Glucose 103 115 H Calcium 7.7 L Acetone Level 11/16/23 11/16/23 11/16/23 21:02 20:00 19:07 Sodium Potassium Chloride Carbon Dioxide Anion Gap BUN Creatinine Estimated Creat Clear Estimated GFR Est GFR ( Amer) Glucose POC Glucose 123 H 145 H 140 H Calcium Acetone Level 11/16/23 11/16/23 11/16/23 18:12 18:08 17:00 Sodium 128 L Potassium 4.2 Chloride 101 Carbon Dioxide 20 L Anion Gap 11.2 BUN 3 L Creatinine 0.50 L Estimated Creat Clear 194 Estimated GFR 187 Est GFR ( Amer) 226 Glucose 162 H POC Glucose 166 H 166 H Calcium 7.2 L Acetone Level 11/16/23 11/16/23 11/16/23 16:33 15:25 14:02 Sodium 129 L Potassium 3.8 Chloride 101 Carbon Dioxide 14 L Anion Gap 17.8 H BUN 3 L D Creatinine 0.50 L Estimated Creat Clear 194 Estimated GFR 187 Est GFR ( Amer) 226 Glucose 174 H POC Glucose 166 H 186 H Calcium 7.3 L Acetone Level 11/16/23 11/16/23 11/16/23 12:52 11:34 11:28 Sodium Potassium Chloride Carbon Dioxide Anion Gap BUN Creatinine Estimated Creat Clear Estimated GFR Est GFR ( Amer) Glucose POC Glucose 187 H 164 H Calcium Acetone Level Moderate 11/16/23 10:36 Sodium Potassium Chloride Carbon Dioxide Anion Gap BUN Creatinine Estimated Creat Clear Estimated GFR Est GFR ( Amer) Glucose POC Glucose 160 H Calcium Acetone Level DS: Diagnosis Discharge Diagnosis (1) DKA (diabetic ketoacidosis): Status: Acute Code(s): E11.10 - Type 2 diabetes mellitus with ketoacidosis without coma (2) Influenza: Status: Acute Code(s): J11.1 - Influenza due to unidentified influenza virus with other respiratory manifestations (3) Dehydration: Status: Acute Code(s): E86.0 - Dehydration Meds Home Medications and Allergies Home Medications Medication Instructions Recorded Confirmed Type levothyroxine 200 mcg capsule 200 mcg PO DAILY #90 caps 02/25/23 11/13/23 Rx metformin 1,000 mg tablet 1,000 mg PO BID Diabetes 11/13/23 11/13/23 History viloxazine 200 mg capsule,extended 400 mg PO DAILY ADHD 11/13/23 11/13/23 History release 24 hr (Qelbree) ondansetron 4 mg disintegrating 4 mg PO Q8H PRN Nausea And Vomiting 11/14/23 11/13/23 History tablet insulin detemir U-100 100 unit/mL 12 unit (0.12 mL) SQ HS #15 mL 11/17/23 Rx (3 mL) subcutaneous pen (Levemir FlexPen) lancets 30 gauge and blood glucose #50 ea 11/17/23 Rx strips combo pack New Prescriptions to Start Prescriptions: insulin detemir U-100 [Levemir FlexPen] Raj Echeverria lancets-blood glucose strips Juwan,Irfan Allergies Allergy/AdvReac Type Severity Reaction Status Date / Time No Known Allergies Allergy Verified 11/04/23 13:49 Discharge Plan Disposition Patient Disposition: Home, Self-Care Condition: Good Discharge Order Discharge Orders: Discharge Order (Routine); Ordered 11/17/23 Ordered By: Raj Echeverria Follow up Plan Follow up with: Josh López APRN [Primary Care Provider] - 1 week (Call office on to schedule appointment for 1 week.) Prescriptions/Medication Reconciliation: New Levemir FlexPen 100 unit/mL (3 mL) insulin pen 12 unit SQ HS Qty: 15 0RF (DME) lancets-blood glucose strips 30 gauge combo pack See Rx Instructions .Route Qty: 50 0RF Rx Instructions: As directed Continued levothyroxine 200 mcg capsule 200 mcg PO DAILY Qty: 90 3RF metformin 1,000 mg tablet 1,000 mg PO BID Rx Instructions: Take 1 tablet by mouth twice daily Qelbree 200 mg capsule,extended release 24hr 400 mg PO DAILY ondansetron 4 mg tablet,disintegrating 4 mg PO Q8H PRN (Reason: Nausea And Vomiting) Discontinued Jardiance 25 mg tablet 25 mg PO DAILY Rx Instructions: Take 1 tablet by mouth once daily Problem Reconciliation Problems Reviewed?: Yes Patient Discharge Instructions ACTIVITY: Continue current activity DIET: diabetic diet Patient Instructions: DI for Dehydration -- Adult, DI for Influenza -- Adult, DI for Diabetic Ketoacidosis Providers Primary Care Provider: Josh López Admit Provider: Raj Echeverria Attending Provider: Raj Echeverria
--- NOTE | 2023-11-17 10:59 | PC.NURSE ---
lantus insulin not administered at this time as pt is to start levemir long acting insulin this evening. discussed with darlene in pharmacy, recommends medication being held this am so pt may start it this evening. medication list discussed with pt at bedside. verbalized understanding of change in meds.
--- NOTE | 2023-11-19 14:03 | SW/DCPLANNER ---
Follow up phone call w/ this patient: patient stated that he is doing well at home and does not have any needs/questions at this time.
== END 2023-11-17 11:09 | disposition home or self-care (01) | DRG 639 ==
LOC: ER 11:59 → 2ND 12:53
PROVIDERS: Nurse Practitioner Family; Admitting Provider Internal Medicine; Emergency Provider Student in an Organized Health Care Education/Training Program; PCP Nurse Practitioner Family; Visit Provider Internal Medicine
DX: E11.10 Type 2 diabetes mellitus with ketoacidosis without coma (principal); J11.1 Influenza due to unidentified influenza virus with other respiratory manifestations; E86.0 Dehydration; F17.210 Nicotine dependence, cigarettes, uncomplicated; F17.290 Nicotine dependence, other tobacco product, uncomplicated; E03.9 Hypothyroidism, unspecified
CPT/HCPCS: 36415; 71045; 80048; 80053; 81001; 82009; 82803; 82947; 82962; 83036; 83735; 84100; 84484; 85007; 85025; 85730; 99291; J2405

== ENCOUNTER 2023-12-10 11:52 | Outpatient (CLI) | payer BC, SELFPAY ==
[2023-12-10 13:36] VITALS: BMI 20.7
== END 2023-12-10 23:59 ==
LOC: DIETICIAN 11:53
PROVIDERS: PCP Nurse Practitioner Family; Visit Provider Nurse Practitioner Family
DX: E11.9 Type 2 diabetes mellitus without complications (principal); Z79.4 Long term (current) use of insulin; Z79.84 Long term (current) use of oral hypoglycemic drugs
CPT/HCPCS: 97802

== ENCOUNTER 2024-03-11 13:09 | Emergency (ER) | payer BC, SELFPAY ==
[2024-03-11 13:50] VITALS: BP 131/71; PULSE 88; RESP 19; TEMP 36.8; O2SAT 98; BMI 22.7
--- NOTE | 2024-03-11 14:07 | ED_ITS ---
Discharge Plan Disposition Patient Disposition: Home, Self-Care Condition: Good Prescriptions Prescriptions: New ondansetron 4 mg tablet,disintegrating 4 mg PO Q8H PRN (Reason: nausea and vomiting) Qty: 10 0RF No Action (DME) lancets [OneTouch Delica Plus Lancet] 30 gauge misc See Rx Instructions .ROUTE .MEDSUPPLY Qty: 100 Rx Instructions: As directed (DME) Omnipod Go Pods 20 units/day Cartridge See Rx Instructions .Route Qty: 5 0RF Rx Instructions: As directed insulin glargine U-300 conc [Toujeo SoloStar U-300 Insulin] 300 unit/mL (1.5 mL) insulin pen 12 unit SQ HS Qty: 4.5 2RF (DME) Dexcom G7 Lead Mobile Developer Misc See Rx Instructions .Route Qty: 1 3RF Rx Instructions: As directed levothyroxine 200 mcg tablet See Rx Instructions .ROUTE .COMPLEX Qty: 90 0RF Dose Instruction: Take 1 tablet by mouth once daily Rx Instructions: Take 1 tablet by mouth once daily (DME) Dexcom G7 Sensor Device See Rx Instructions .Route Qty: 1 1RF Rx Instructions: As directed metformin 1,000 mg tablet 1,000 mg PO BID Qty: 60 3RF Rx Instructions: Take 1 tablet by mouth twice daily (DME) lancets-blood glucose strips 30 gauge combo pack See Rx Instructions .Route Qty: 50 0RF Rx Instructions: As directed insulin lispro 100 unit/mL insulin pen See Rx Instructions .ROUTE .COMPLEX Patient Comments: USE DIRECTED BY SLIDING SCALE. MAX DAILY DOSE OF 30 UNITS. Rx Instructions: SLIDING SCALE Referrals Follow up/Referrals: Provider,Referral, MD [Primary Care Provider] - See instructions Activity Restrictions/Add. Instructions Additional Instructions/Restrictions: Drink extra fluids with and between meals. If you have difficulty drinking, try very small amounts of water or suck on ice chips. ? Avoid fruit juices, as these do not replace minerals and can actually increase diarrhea. ? Children and adults can use sports drinks to replenish electrolytes. Younger children and infants should use products formulated for children, like oral rehydration solutions. ? Eat food in small amounts and let your stomach recover. ? Get lots of rest. You may feel tired or weak. ? No greasy or fried foods for the next 24-48 hours BRAT diet Bananas Rice Apples and [employer] ? Make sure to drink plenty of liquids ? Return if needed ? Straight to ER if any life threatening symptoms ? Zofran as prescribed ? Follow up with family doctor in the next 48-72 hours if no improvement or any worsening of symptoms Clinical Impressions Clinical Impression: Nausea vomiting and diarrhea Stand Alone Forms Stand Alone Forms: Work/School Release Instructions Patient Instructions: Diarrhea, Nausea and Vomiting-Adult Discharge ED Provider: Mela Deng [facility] General Stated complaint: vomiting, diarrea, weakness Mode of Arrival: Ambulatory Source of Information: Patient Limitations: No Limitations Time Seen by Provider: 03/11/24 14:08 Description of Symptoms (Recalled from Triage Doc. by RN): PATIENT C/O VOMITING, DIARRHEA, AND WEAKNESS THAT STARTED LAST NIGHT. PATIENT STATES HIS RECENTLY HAD A STOMACH VIRUS HEENT Symptoms (Recalled from RN notes): No Resp Symptoms (Recalled from RN notes): No Skin Symptoms (Recalled from RN notes): No MS Symptoms (Recalled from RN notes): No Functional Status (Recalled from RN notes): WNL History of Present Illness Provider Complaint: Patient states that had stomach bug on Saturday and now he is having the same symptoms vomiting and diarrhea States that he is a diabetic and has a dexcom and has been watching his blood sugars and they have been around 179 Related Data Home Medications Medication Instructions Recorded Confirmed lancets 30 gauge (OneTouch Delica #100 ea 11/21/23 11/21/23 Plus Lancet) insulin lispro 100 unit/mL See Rx Instructions .Route .COMPLEX 03/11/24 03/11/24 subcutaneous pen Previous Rx's Medication Instructions Recorded lancets 30 gauge and blood glucose #50 ea 11/17/23 strips combo pack insulin pump cart,20 units/day #5 ea 01/16/24 (Omnipod Go Pods 20 units/day subcutaneous cartridge) insulin glargine U-300 conc 300 12 unit (0.04 mL) SQ HS #4.5 mL 01/29/24 unit/mL (1.5 mL) subcutaneous pen (Toujeo SoloStar U-300 Insulin) blood-glucose meter,continuous #1 ea 02/17/24 (Dexcom G7 Lead Mobile Developer) levothyroxine 200 mcg tablet See Rx Instructions .Route 02/28/24 .COMPLEX #90 tabs blood-glucose sensor (Dexcom G7 #1 ea 03/05/24 Sensor device) metformin 1,000 mg tablet 1,000 mg PO BID Diabetes #60 tabs 03/05/24 ondansetron 4 mg disintegrating 4 mg PO Q8H PRN nausea and 03/11/24 tablet vomiting #10 tabs Allergies Allergy/AdvReac Type Severity Reaction Status Date / Time No Known Allergies Allergy Verified 01/16/24 10:57 Worker's Comp Is this a Worker's Comp case?: [facility] Dis[facility]: The information contained in this section may have been updated after the patient was seen, as this information can be updated by other users. Medical History (Updated 03/11/24 @ 14:21 by Mela Deng APRN) Adverse effect of sodium-glucose cotransporter 2 (SGLT2) inhibitor DKA (diabetic ketoacidosis) Generalized weakness Dehydration Influenza Acute viral syndrome Uncontrolled type 2 diabetes mellitus Attention deficit disorder (ADD) in adult Pharyngitis Viral syndrome Exposure to COVID-19 virus Graves disease Boxers fracture Erectile dysfunction Hypothyroidism Diabetes Fatigue Social History (Updated 11/13/23 @ 14:35 by Linda Lamar RN) Smoking Status: Current every day smoker tobacco type: cigarettes packs per day: 1 and e-cigarettes second hand exposure: Yes alcohol intake: current counseling given: No substance use type: denies use and marijuana counseling given: No (he states that he smokes delta 8 on occasion; used to smoke a lot of THC) current occupational status: employed Travel in the last 8 weeks: None adopted: No caregiver/support person: No foster care: No household members: spouse housing: house lives independently: Yes marital status: number of children: 0 number of grandchildren: 3 education level: high school service: No pets and animals: Yes (boxer; pit mix; he is a year old) pets and animals: dog(s) Hx Recent Travel: No sexually active: Yes caffeine: Yes physical activity: none kassy/protestant: None special kassy needs: No working smoke detector in home: Yes fire extinguisher in home: No carbon monox detector in home: Yes firearms in home: Yes firearms unloaded and locked: Yes do you feel safe at home: Yes victim of physical abuse: No victim of emotional abuse: No victim of sexual abuse: No would you like helpful sources: No ROS Obtained: Yes All systems reviewed & no additional complaints except as documented and Yes Systems reviewed as appropriate & no additional complaints except as documented Constitutional Constitutional: Reports system reviewed and no additional complaints, except as documented, Reports as per HPI, Denies body ache and Denies chills ENT Ears, Nose, Mouth, and Throat: Reports system reviewed and no additional complaints, except as documented and Reports as per HPI Cardiovascular Cardiovascular: Reports system reviewed and no additional complaints, except as documented, Reports as per HPI and Denies palpitations Respiratory Respiratory: Reports system reviewed and no additional complaints, except as documented and Reports as per HPI Gastrointestinal Gastrointestingal: Reports system reviewed and no additional complaints, except as documented, as per HPI, diarrhea, nausea and vomiting; Denies abdominal pain Genitourinary Male Genitourinary: Reports system reviewed and no additional complaints, except as documented and Reports as per HPI Neurologic Neurologic: Reports system reviewed and no additional complaints, except as documented and Reports as per HPI Endocrine Endocrine: Reports system reviewed and no additional complaints, except as documented, Reports as per HPI, Denies cold intolerance, Denies flushing, Denies palpitations, Denies polydipsia and Denies polyuria Physical Exam General General appearance: alert and in no apparent distress ENT ENT exam: Present mucous membranes moist Respiratory Respiratory exam: Present normal lung sounds bilaterally; Absent respiratory distress or wheezes Cardiovascular Cardiovascular exam: Present regular rate, normal rhythm and normal heart sounds Abdominal Exam Abdominal exam: Present soft and normal bowel sounds; Absent distention or tenderness Neurological Exam Neurological exam: Present alert, oriented X3 and normal gait Medical Decision Making Sy Inquiry Pt receiving controlled substance: No Sy was queried for this patient: No Vital Signs: 03/11/24 13:50 Temperature 98.2 F Temperature Source Oral Pulse Rate [Left Brachial] 88 Respiratory Rate 19 Blood Pressure [Left Arm] 131/71 Blood Pressure Mean [Left Arm] 91 Blood Pressure Source [Left Arm] Automatic Cuff Blood Pressure Position [Left Arm] Sitting 02 Sat by Pulse Oximetry 98 Oxygen Delivery Method Room Air Medical Decision Narrative: Patient had DKA in Oct but since has changed his medication and now has a Dexcom in place reading in UTC 179, reports exposure to stomach bug his had N/V/D earlier in the week and he started with it last night with Diarrhea, N/V Feels better after zofran no vomiting drinking water
[2024-03-11] MEDS: ONDANSETRON 4MG ODT 4 MG SL (14:21)
[2024-03-11 14:47] VITALS: BP 131/71; PULSE 88; RESP 19; TEMP 36.8; O2SAT 98
== END 2024-03-11 15:06 | disposition home or self-care (01) ==
PROVIDERS: Emergency Provider Nurse Practitioner
DX: R11.2 Nausea with vomiting, unspecified (principal); R19.7 Diarrhea, unspecified; E11.9 Type 2 diabetes mellitus without complications; F17.210 Nicotine dependence, cigarettes, uncomplicated; E03.9 Hypothyroidism, unspecified; Z79.4 Long term (current) use of insulin; Z79.84 Long term (current) use of oral hypoglycemic drugs
CPT/HCPCS: 99212; 99214; G0463

== ENCOUNTER 2024-10-02 12:29 | Outpatient (CLI) | payer BC, SELFPAY ==
[2024-10-02 14:23] LABS: Free T4 (Free Thyroxine) 1.12 ng/dl (0.78-2.19)
== END 2024-10-02 23:59 | disposition home or self-care (01) ==
LOC: LAB 12:42
PROVIDERS: PCP Family Medicine; Visit Provider Physician Assistant Medical
DX: E89.0 Postprocedural hypothyroidism (principal)
CPT/HCPCS: 36415; 84439; 84443